=== PATIENT | female | born 1945 | race Caucasian/White ===

== ENCOUNTER 2020-10-15 11:40 | Emergency (ER) | payer OTHER ==
--- OUTSIDE RECORDS SUMMARY | 2020-10-15 11:43 | XMS REPORT | Continuity of Care Document ---
:[address] [facility] t Address [address] [place] [address] Care Team Providers Name Role Phone Mayito Primary Care Physician Jose F BRASHER, L Attending Clinician Reddy BRASHER, R. Attending Clinician Janeth BRASHER Attending Clinician JACKELINE Attending Clinician Unavailable JACKELINE Admitting Clinician Unavailable Payers Payer Name Policy Type Policy Effective Expiration Source Number Date Date MEDICAREMEDICARE PART [id number] 2009 [place] A AND 00:00:00 [facility] [id number]/06/2009[place] [facility] [id number] 2017 Chiqu[place] ston OF 00:00:00 [facility] [id number] 8-Present[facility]mercial MEDICAREMEDICARE PART [id number] 2009 Un iversity of A & 00:00:00 [facility] [id number] 2009- [facility] [phone][id number] ROSALIND PERKINS [phone] [facility] [id number] 2017 Uni versity of OF 00:00:00 [facility] [id number] 2017 Bra [facility] -PresentHMO/PPO/POS MEDICAREMEDICARE A [id number] ZAIDA Tia solomon Melodie - [id number] 2009- 00:00:00 [facility] PresentMedicare MCR [id number] 2017 ZAIDA [place] - SUPPLEMENT/INDIVIDUAL 00:00:00 [facility] MUTUAL OF [id number] 2017 -PresentMedigap Problems Condition Condition Condition Status Onset Resolution Last Treating Co mments Source Name Details Category Date Date Treatment Clinician Date DDD DDD Disease Active 2019-06 [place] (degenerat (degenerat 0-29 Me thodi jordyn disc jordyn disc 00:00: st disease), disease), 00 cervical cervical Alteration Alteration Disease Active 2019-06 [place] s of s of 0-29 [facility] sensations sensations 00:00: st 00 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 3-06 Me thodi right knee right knee 00:00: st replacemen replacemen 00 t 07/29/19 t 07/29/19 Osteoarthr Osteoarthr Disease Active [place] itis of itis of 2-27 Methodi right knee right knee 00:00: st 00 Chronic Chronic Disease Active [place] pain of pain of 1-20 [facility] right knee right knee 00:00: st 00 Primary Primary Disease Active [place] osteoarthr osteoarthr 1-15 Me thodi itis of itis of 00:00: st right knee right knee 00 Acute Acute Disease Active [place] medial medial 1-15 [facility] meniscus meniscus 00:00: st tear of tear of 00 right knee right knee Acute Acute Disease Active [place] lateral lateral 1-15 [facility] meniscus meniscus 00:00: st tear of tear of 00 left knee left knee Bilateral Bilateral Disease Active Uni vers hand pain hand pain 2-22 ity of 00:00: [place] 00 Medical Branch Allergies, Adverse Reactions, Alerts Allergy Allergy Status Severity Reaction(s) Onset Inactive Treating Comm ents Source Name Type Date Date Clinician Sulfa Propensi Active Rash [place] (Sulfona ty to 1-15 Methodi mide adverse 00:00: st Antibiot reaction 00 ics) s to drug Sulfacet Propensi Active Rash Univer s Sod-Sulf ty to 2-25 ity of -Urea-Me adverse 00:00: [place] r-Ti reaction 00 Medical s Branch Family History Family Member Diagnosis Comments Start Date Stop Date Source Natural father Cancer [facility] Natural father Heart attack [facility] Natural father Heart disease [facility] Natural mother Kidney disease [place] [facility] Paternal aunt Heart attack [facility] Paternal aunt Heart disease [facility] Paternal aunt Cancer [facility] Paternal grandfather Cancer [place] [facility] Paternal uncle Heart attack [facility] Vasquez Social History Social Habit Start Date Stop Date Quantity Comments Source Sex Assigned At [facility] Exposure to Not sure [place] Metho dist SARS-CoV-2 (event) Cigarettes smoked 2020-03-30 2020-03-30 [facility] current (pack per 00:00:00 00:00:00 day) - Reported Cigarette 2020-03-30 2020-03-30 [facility] Timothy ist pack-years 00:00:00 00:00:00 Tobacco use and 2020-03-30 2020-03-30 Never used [facility] ethodist exposure 00:00:00 00:00:00 Alcohol intake 2020-03-30 2020-03-30 Ex-drinker [facility]ist 00:00:00 00:00:00 (finding) Alcohol Comment 2019-07-15 2019-07-15 Rarely [facility] [place] ethodist 00:00:00 00:00:00 History of tobacco 2004-06-02 2014-06-02 Current smoker Prasanna nguyen [facility] use 00:00:00 00:00:00 Smoking Status Start Date Stop Date Source Never smoker [facility] Former smoker 2020-03-30 00:00:00 2020-03-30 00:00:00 [place] [facility] Medications Ordered Filled Start Stop Current Ordering Indication Dosage Frequency Signature Comments Components Source Medication Medication Date Date Medication? Clinician (SIG) Name Name naproxen 2019-06 Yes 1{tbl} Q.5D Take 1 [place] sodium 0-29 tablet by Methodi (ALEVE) 220 10:10: mouth 2 st mg capsule 30 (two) times a day. glucosamine 2019-06 Yes 1{tbl} QD Take 1 [place] /chondr pritchett 0-29 tablet by Meth gabriel A sod 10:10: mouth st (OSTEO 30 daily. BI-FLEX ORAL) TURMERIC 2019- Yes QD Take by [place] ORAL 0-29 mouth Methodi 10:10: every st 30 morning. cranberry 2019- Yes 1{tbl} Q.5D Take 1 [place] fruit 0-29 tablet by [facility] extract 10:10: mouth 2 st (CRANBERRY 30 (two) ORAL) times a day. magnesium 2019- Yes 400mg QD Take [address] [address] oxide 0-29 mg by Methodi (MAG-OX) 10:10: mouth st 400 mg 30 daily. (241.3 mg magnesium) tablet calcium 2019-06 Yes 1{tbl} Q.5D Take 1 [place] citrate-vit 0-29 tablet by Met hodi charles D3 10:10: mouth 2 st (CITRACAL+D 30 (two) ) 315-200 times a mg-unit per day. tablet BIOTIN ORAL 2019-06 Yes 2{tbl} QD Take 2 [place] 0-29 tablets by Methodi 10:10: mouth st 30 daily. NON 2019-06 Yes vivek [facility] FORMULARY 0-29 supplement Meth gabriel 10:10: st 30 sertraline 2019- Yes 150mg 150 mg. [place] (ZOLOFT) 1-11 Methodi 100 MG 00:00: st tablet 00 omeprazole 2019- Yes 20mg QD Take 20 mg [place] (PriLOSEC) 1-10 by mouth Metho di 20 MG 00:00: every st capsule 00 morning. EZETIMIBE 2018-06 Yes Take by [facility] ers ORAL 2-02 mouth. ity of 22:25: [address] EZETIMIBE 2018-06 Yes Take by [facility] ers ORAL 2-02 mouth. ity of 22:25: [address] LORAZepam 2018-06 Yes .5mg Q.5D Take 0.5 [place] (ATIVAN) 2-02 mg by Methodi 0.5 MG 00:00: mouth 2 st tablet 00 (two) times a day as needed for anxiety. methylPREDN 2016- Yes 84mg Take 21 Uni vers ISolone 5-02 tablets by ity of (MEDROL, 00:00: mouth [place] JORGE,) 4 mg 00 SEE-INSTRU Med ical tablets CTIONS. Branch follow package directions methylPREDN 2017-0 Yes 84mg Take 21 Uni vers ISolone 5-02 tablets by ity of (MEDROL, 00:00: mouth [place] JORGE,) 4 mg 00 SEE-INSTRU Med ical tablets CTIONS. Branch follow package directions naproxen 2017-0 Yes 500mg Take 1 Univer s 500 mg 4-13 tablet by ity of tablet 00:00: mouth 2 (two) Medical times Branch daily with meals. naproxen 2017-0 Yes 500mg Take 1 Univer s 500 mg 4-13 tablet by ity of tablet 00:00: mouth 2 (two) Medical times Branch daily with meals. diclofenac 2017-0 Yes 75mg Take 1 Unive rs 75 mg EC 2-22 tablet by ity of tablet 00:00: mouth 2 (two) Medical times Branch daily with meals. methylPREDN 2017-0 Yes 84mg Take 21 Uni vers ISolone 2-22 tablets by ity of (MEDROL, 00:00: mouth [place] JORGE,) 4 mg 00 SEE-INSTRU Med ical tablets CTIONS. Branch follow package directions diclofenac 2017-0 Yes 75mg Take 1 Unive rs 75 mg EC 2-22 tablet by ity of tablet 00:00: mouth 2 (two) Medical times Branch daily with meals. methylPREDN 2017-0 Yes 84mg Take 21 Uni vers ISolone 2-22 tablets by ity of (MEDROL, 00:00: mouth [place] JORGE,) 4 mg 00 SEE-INSTRU Med ical tablets CTIONS. Branch follow package directions methylPREDN 2016-0 Yes 84mg Take 21 Uni vers ISolone 2-25 Tabs by ity of (MEDROL, 00:00: mouth [place] JORGE,) 4 mg 00 SEE-INSTRU Med ical tablets CTIONS. Branch follow package directions methylPREDN 2016-0 Yes 84mg Take 21 Uni vers ISolone 2-25 Tabs by ity of (MEDROL, 00:00: mouth [place] JORGE,) 4 mg 00 SEE-INSTRU Med ical tablets CTIONS. Branch follow package directions LORazepam 2015-0 Yes Univers (ATIVAN) 2-24 ity of 0.5 mg 00:00: [place] tablet 00 Medical Branch LORazepam 2016-0 Yes Univers (ATIVAN) 2-24 ity of 0.5 mg 00:00: [place] tablet 00 Medical Branch SERTraline Yes Univers (ZOLOFT) 2-22 ity of 100 mg 00:00: [place] tablet 00 Medical Branch SERTraline Yes Univers (ZOLOFT) 2-22 ity of 100 mg 00:00: [place] tablet 00 Medical Branch atenolol Yes 25mg QD Take 25 mg [place] (TENORMIN) 1-11 by mouth Metho di 25 MG 00:00: nightly. st tablet atenolol Yes Univers (TENORMIN) 1-11 ity of 25 mg 00:00: [place] tablet 00 Medical Branch atenolol Yes Univers (TENORMIN) 1-11 ity of 25 mg 00:00: [place] tablet 00 [facility] Branch omeprazole 2014-06 Yes Univers (PRILOSEC) 2-16 ity of 40 mg 00:00: [place] capsule 00 [facility] omeprazole 2014-06 Yes Univers (PRILOSEC) 2-16 ity of 40 mg 00:00: [place] capsule 00 [facility] levothyroxi 2014-06 Yes 88ug QD Take 88 [place] ne 2-04 mcg by Methodi (SYNTHROID) 00:00: mouth st 88 mcg 00 every tablet morning. levothyroxi 2014-06 Yes Univer s ne 2-04 ity of (SYNTHROID) 00:00: [place] 88 mcg 00 [facility] Branch levothyroxi 2014-06 Yes Univer s ne 2-04 ity of (SYNTHROID) 00:00: [place] 88 mcg 00 [facility] Branch Immunizations Ordered Immunization Filled Immunization Date Status Commen ts Source Name Name PFIZER COVID-19 MRNA 2020-07-03 Completed [place] VACCINATION 00:00:00 [facility] PFIZER COVID-19 MRNA 2020-06-12 Completed [place] VACCINATION 00:00:00 [facility] Vital Signs Vital Name Observation Time Observation Value Comments Source Systolic blood 2020-10-06 15:33:00 121 mm[Hg] Univer sity of [facility] Diastolic blood 2020-10-06 15:33:00 62 mm[Hg] Unive rsity of [facility] Heart rate 2020-10-06 15:33:00 50 /min Universi ty [facility] [place] [facility] Body height 2020-10-06 15:33:00 167.6 cm Universi ty [facility] [place] [facility] Body weight 2020-10-06 15:33:00 84.823 kg Universi ty [facility] [place] [facility] BMI 2020-10-06 15:33:00 30.18 kg/m2 Universi ty [facility] [place] [facility] Systolic blood 2020-10-06 15:33:00 121 mm[Hg] Univer sity [facility] pressure [facility] Diastolic blood 2020-10-06 15:33:00 62 [facility]Hg[facility] 2020-10-06 15:33:00 50 /min Universi ty [facility] [place] [facility] Body height 2020-10-06 15:33:00 167.6 cm Universi ty [facility] [place] [facility] Body weight 2020-10-06 15:33:00 84.823 kg Universi ty [facility] [place] [facility] BMI 2020-10-06 15:33:00 30.18 kg/m2 Universi [facility] Body height 2020-03-30 10:00:00 167.6 cm [facility] Body weight 2020-03-30 10:00:00 86.183 kg [facility] BMI 2020-03-30 10:00:00 30.67 kg/m2 [facility] Procedures Procedure Date / Time Performed Performing Clinician [facility] e MRI SPINE EXTERNAL 2020-03-15 14:13:00 Unique Blakely [facility] STUDY MRA HEAD WITH & 2020-01-03 10:54:[address] [facility] - WITHOUT [facility] CONTRAST Medical Cent er MRA NECK WITH & 2020-01-03 10:54:[address] [facility] - WITHOUT CONTRAST Medical Center MR BRAIN WITH & 2020-01-03 10:54:[address] [facility] - WITHOUT IV CONTRAST Medical Cent er Plan of Care Planned Activity Planned Date Details Comments Source Future Scheduled 2021-10-06 Depression screening [facility] [place] Test 00:00:00 (procedure) [code = Medical Branch 587398218] Future Scheduled 2021-10-06 Depression screening [facility] [place] Test 00:00:00 (procedure) [code = Medical Branch 773245960] Future Scheduled 2021-01-31 INFLUENZA VACCINE [facility] [place] Test 00:00:00 (Season Ended) [code = Medic al Branch INFLUENZA VACCINE (Season Ended)] Future Scheduled 2021-01-31 INFLUENZA VACCINE [facility] [place] Test 00:00:00 (Season Ended) [code = Medic al Branch INFLUENZA VACCINE (Season Ended)] Future Scheduled 2020-12-31 INFLUENZA VACCINE [place] [facility] Test 00:00:00 [code = INFLUENZA VACCINE] Future Scheduled 2020-02-01 INFLUENZA VACCINE (#1[facility] Test 00:00:00 [code = INFLUENZA Medical Ce nter VACCINE (#1)] Future Scheduled 2010-11-[address] [facility] Test 00:00:00 WELLNESS (YEAR 2 or Medical Center FIRST YEAR if no IPPE) [code = MEDICARE ANNUAL WELLNESS (YEAR 2 or FIRST YEAR if no IPPE)] Future Scheduled 2009 PNEUMOCOCCAL 65+ YRS [facility] - Test 00:00:00 (1 of 1 - Medical Center [id number]) [code = PNEUMOCOCCAL 65+ YRS (1 of 1 - [id number] PCV13)] Future Scheduled 2009 65+ PNEUMOCOCCAL [place] [facility] Test 00:00:00 VACCINE (1 of 1 - PPSV23) [code = 65+ PNEUMOCOCCAL VACCINE (1 of 1 - PPSV23)] Future Scheduled 2009 Medicare Annual Universi ty [facility] Test 00:00:00 Wellness Visit Medical Branc h (procedure) [code = 290865796688107] Future Scheduled 2009 Screening for [facility] Test 00:00:00 osteoporosis Medical Branch (procedure) [code = 469385330] Future Scheduled 2009 PNEUMOCOCCAL VACCINES Un iversity [facility] Test 00:00:00 65+ (1 of 1 - PPSV23) Medica l Branch [code = PNEUMOCOCCAL VACCINES 65+ (1 of 1 - PPSV23)] Future Scheduled 2009 Medicare Annual Universi ty [facility] Test 00:00:00 Wellness Visit Medical Branc h (procedure) [code = 586412417671598] Future Scheduled 2009 Screening for University [facility] Test 00:00:00 osteoporosis Medical Branch (procedure) [code = 318989426] Future Scheduled 2009 PNEUMOCOCCAL VACCINES [facility] [place] Test 00:00:00 65+ (1 of 1 - PPSV23) Medica l Branch [code = PNEUMOCOCCAL VACCINES 65+ (1 of 1 - PPSV23)] Future Scheduled 1994 BREAST CANCER [facility]odist Test 00:00:00 SCREENING [code = BREAST CANCER SCREENING] Future Scheduled 1994 COLONOSCOPY SCREENING [place] [facility] Test 00:00:00 [code = COLONOSCOPY SCREENING] Future Scheduled 1994 SHINGLES VACCINES (#1) H [facility] [facility] Test 00:00:00 [code = SHINGLES VACCINES (#1)] Future Scheduled 1994 Screening for occult [facility] [place] Test 00:00:00 blood in feces Medical Branc h (procedure) [code = 602484765] Future Scheduled 1994 Stool DNA-based Universi [facility] Test 00:00:00 colorectal cancer Medical Br anch screening (procedure) [code = 230898085813830] Future Scheduled 1994 [facility] sigmoidoscopy Medical Branch (procedure) [code = 93670272] Future Scheduled 1994 Screening for University [facility] Test 00:00:00 malignant neoplasm of Medica l Branch colon (procedure) [code = 828498208] Future Scheduled 1994 Screening for University [facility] Test 00:00:00 malignant neoplasm of Medica l Branch colon (procedure) [code = 859505689] Future Scheduled 1994 [facility]com[facility]00 Vaccine (SHINGRIX) (1 Medica l Branch of 2) [code = Zoster Recombinant Vaccine (SHINGRIX) (1 of 2)] Future Scheduled 1994 Screening for occult [facility] [place] Test 00:00:00 blood in feces Medical Branc h (procedure) [code = 259147508] Future Scheduled 1994 Stool DNA-based Universi [facility] Test 00:00:00 colorectal cancer Medical Br anch screening (procedure) [code = 340837048709753] Future Scheduled 1994 [facility]ible fiberoptic [facility]:00 sigmoidoscopy Medical Branch (procedure) [code = 41721787] Future Scheduled 1994 Screening for University [facility] Test 00:00:00 malignant neoplasm of Medica l Branch colon (procedure) [code = 264146316] Future Scheduled 1994 Screening for University [facility] Test 00:00:00 malignant neoplasm of Medica l Branch colon (procedure) [code = 370051135] Future Scheduled 1994 [facility]oster [facility]com[facility]00 Vaccine (SHINGRIX) (1 Medica l Branch of 2) [code = Zoster Recombinant Vaccine (SHINGRIX) (1 of 2)] Future Scheduled 1984 Screening for [facility] Test 00:00:00 malignant neoplasm of Medica l Branch breast (procedure) [code = 012283480] Future Scheduled 1984 Screening for [facility] Test 00:00:00 malignant neoplasm of Medica l Branch breast (procedure) [code = 313492929] Future Scheduled 1963-11-29 DTaP,Tdap,and Td Univers ity [facility] Test 00:00:00 Vaccines (1 - Tdap) Medical Branch [code = DTaP,Tdap,and Td Vaccines (1 - Tdap)] Future Scheduled 1963-11-29 DTaP,Tdap,and Td Univers ity [facility] Test 00:00:00 Vaccines (1 - Tdap) Medical Branch [code = DTaP,Tdap,and Td Vaccines (1 - Tdap)] Future Scheduled 1962 Hepatitis C screening [facility] Test 00:00:00 (procedure) [code = 398898805] Future Scheduled 1962 Hepatitis C screening [facility] [place] Test 00:00:00 (procedure) [code = Medical Branch 189491293] Future Scheduled 1962 Hepatitis C screening [facility] [place] Test 00:00:00 (procedure) [code = Medical Branch 306921356] Future Scheduled [address] [facility] - Test 00:00:00 malignant neoplasm of Medica l Center colon (procedure) [code = 047950067] Encounters Start End Encounter Admission Attending Care Care Encounter Source Date/Time Date/Time Type Type Clinicians Facility Department ID 2020-10-13 2020-10-13 Telephone Jose F [facility] [id number] 00:00:00 00:00:00 [facility] [id number] Surgical [id number] Specialti [id number] es 198 [place] 2020-10-10 2020-10-10 [facility] [id number] 00:00:00 00:00:00 Bruno Kilpatrick [id number] Surgical [id number] Specialti [id number] es [address] [place] 2020-10-06 2020-10-06 [facility] [id number] 10:37:14 23:59:00 Encounter Bruno Estrada [facility] [id number] Surgical [id number] Specialti [id number] es 809 [place] 2020-10-06 2020-10-06 [facility] [id number] 10:27:50 10:56:15 Visit Bruno Kilpatrick [id number] Surgical [id number] Specialti [id number] es 198 [place] 2020-07-03 2020-07-03 Outpatient [facility] [id number] [place] 00:00:00 00:00:00 117 Method i 2020-06-12 2020-06-12 Outpatient [facility] [id number] [place] 00:00:00 00:00:[address] 2020-03-30 2020-03-[address] [facility] [id number] [place] 00:00:00 00:00:00 UNIQUE [address] 2020-03-30 2020-03-30 Outpatient SASSARD, [facility] [id number] [place] 00:00:00 00:00:00 UNIQUE 275 Method i 2019-09-17 2019-09-17 Outpatient JACKELINE, [facility] [id number] [place] 00:00:00 00:00:00 LEW [address] 2019-08-06 2019-08-06 Outpatient JACKELINE, [facility] [id number] [place] 00:00:00 00:00:00 LEW 933 Method i 2019-08-06 2019-08-06 Outpatient JACKELINE, [facility] [id number] [place] 00:00:00 00:00:00 LWE [address] 2019-07-29 2019-07-30 Outpatient JACKELINE, [facility] [id number] [place] 00:00:00 00:00:00 LEW [address] 2019-06-16 2019-06-16 Outpatient [facility] [id number] [place] 00:00:00 00:00:[address] Results Test Description Test Time Test Comments Results Result Sourc e Comments MRI Spine 2020-03-03 This exam was not [place] External Study 9 acquired at a [facility]i 10:50:06 [facility] facility and has not been interpreted by a [facility] Provider. The exam was imported into our imaging system. MR, MRA, BRAIN, FINAL REPORT PATIENT WITH 3 ID: [id number] MR, 11:17:00 BRAIN, WITH \T\ WITHOUT CONTRAST, MR, MRA, NECK, WITH \T\ WITHOUT IV CONTRAST, MR, MRA, BRAIN, WITH \T\ WITHOUT CONTRAST INDICATION: DIZZINESS TECHNIQUE: Multiplanar, multisequence MR images of the brain. 3-D time of flight MRA of the cranial and cervical circulation. 2-D time of flight MRA of the neck. 3D MIP angiographic post-processing was performed. Stenosis evaluation utilized NASCET criteria. COMPARISON: Noncontrast brain CT of the same date FINDINGS: MRI BRAIN: Brain parenchyma is normal in morphology. Midline structures are normally developed. No restricted diffusion to suggest recent ischemic insult. No abnormal susceptibility. Scattered T2/FLAIR hyperintense foci within the periventricular and subcortical white matter are nonspecific, however, statistically represent chronic microvascular ischemic changes. No hydrocephalus. Orbits are within normal limits. No obstructive paranasal sinus disease. Additional findings: None. 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 Normal flow-related enhancement within the bilateral HOUSEKEEPING SUPERVISOR HOTEL P1-P2 segments without flow-limiting stenosisAdditional findings: None. MRA NECK:Common carotid arteries: Unremarkable. Bifurcations: No flow-limiting stenosis. Cervical internal carotid arteries: No flow limiting stenosis.Vertebral arteries: Origins are not well-seen. No flow limiting stenosis within the visualized cervical vertebral arterial segments. Limited assessment of the V3 segment secondary to noncontrast technique. IMPRESSION: No acute ischemia or parenchymal hemorrhage. No flow limiting stenosis in the major branch vessels of the cervical or cranial circulation. Signed: Saeed Jeffers MDReport Verified Date/Time: 01/03/2020 11:17:26 Reading Location: [facility] C013V Neuro Reading Room , MRA, NECK, FINAL REPORT PATIENT WITH 3 ID: [id number] MR, 11:17:00 BRAIN, WITH \T\ WITHOUT CONTRAST, MR, MRA, NECK, WITH \T\ WITHOUT IV CONTRAST, MR, MRA, BRAIN, WITH \T\ WITHOUT CONTRAST INDICATION: DIZZINESS TECHNIQUE: Multiplanar, multisequence MR images of the brain. 3-D time of flight MRA of the cranial and cervical circulation. 2-D time of flight MRA of the neck. 3D MIP angiographic post-processing was performed. Stenosis evaluation utilized NASCET criteria. COMPARISON: Noncontrast brain CT of the same date FINDINGS: MRI BRAIN: Brain parenchyma is normal in morphology. Midline structures are normally developed. No restricted diffusion to suggest recent ischemic insult. No abnormal susceptibility. Scattered T2/FLAIR hyperintense foci within the periventricular and subcortical white matter are nonspecific, however, statistically represent chronic microvascular ischemic changes. No hydrocephalus. Orbits are within normal limits. No obstructive paranasal sinus disease. Additional findings: None. 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 Normal flow-related enhancement within the bilateral HOU[employer]KEEP[employer] HOTEL P1-P2 segments without flow-limiting stenosisAdditional findings: None. MRA NECK:Common carotid arteries: Unremarkable. Bifurcations: No flow-limiting stenosis. Cervical internal carotid arteries: No flow limiting stenosis.Vertebral arteries: Origins are not well-seen. No flow limiting stenosis within the visualized cervical vertebral arterial segments. Limited assessment of the V3 segment secondary to noncontrast technique. IMPRESSION: No acute ischemia or parenchymal hemorrhage. No flow limiting stenosis in the major branch vessels of the cervical or cranial circulation. Signed: Saeed Jeffers MDReport Verified Date/Time: 01/03/2020 11:17:26 Reading Location: [address] Neuro Reading Room , BRAIN, WITH FINAL REPORT PATIENT 3 ID: [id number] MR, 11:17:00 BRAIN, WITH \T\ WITHOUT CONTRAST, MR, MRA, NECK, WITH \T\ WITHOUT IV CONTRAST, MR, MRA, BRAIN, WITH \T\ WITHOUT CONTRAST INDICATION: DIZZINESS TECHNIQUE: Multiplanar, multisequence MR images of the brain. 3-D time of flight MRA of the cranial and cervical circulation. 2-D time of flight MRA of the neck. 3D MIP angiographic post-processing was performed. Stenosis evaluation utilized NASCET criteria. COMPARISON: Noncontrast brain CT of the same date FINDINGS: MRI BRAIN: Brain parenchyma is normal in morphology. Midline structures are normally developed. No restricted diffusion to suggest recent ischemic insult. No abnormal susceptibility. Scattered T2/FLAIR hyperintense foci within the periventricular and subcortical white matter are nonspecific, however, statistically represent chronic microvascular ischemic changes. No hydrocephalus. Orbits are within normal limits. No obstructive paranasal sinus disease. Additional findings: None. 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 Normal flow-related enhancement within the bilateral HOU[employer]KEEP[employer]PER[employer] HOTEL P1-P2 segments without flow-limiting stenosisAdditional findings: None. MRA NECK:Common carotid arteries: Unremarkable. Bifurcations: No flow-limiting stenosis. Cervical internal carotid arteries: No flow limiting stenosis.Vertebral arteries: Origins are not well-seen. No flow limiting stenosis within the visualized cervical vertebral arterial segments. Limited assessment of the V3 segment secondary to noncontrast technique. IMPRESSION: No acute ischemia or parenchymal hemorrhage. No flow limiting stenosis in the major branch vessels of the cervical or cranial circulation. Signed: Saeed Jeffers MDReport Verified Date/Time: 01/03/2020 11:17:26 Reading Location: [address] Neuro Reading Room head with Interface, External [facility] and without 3 Ris In - 01/03/2020 - Me dical contrast 11:17:00 11:19 AM [facility] Center REPORT MR, BRAIN, WITH \T\ WITHOUT CONTRAST, MR, MRA, NECK, WITH \T\ WITHOUT IV CONTRAST, MR, MRA, BRAIN, WITH \T\ WITHOUT CONTRAST INDICATION: DIZZINESS TECHNIQUE: Multiplanar, multisequence MR images of the brain. 3-D time of flight MRA of the cranial and cervical circulation. 2-D time of flight MRA of the neck. 3D MIP angiographic post-processing was performed. Stenosis evaluation utilized NASCET criteria. COMPARISON: Noncontrast brain CT of the same date FINDINGS: MRI BRAIN: Brain parenchyma is normal in morphology. Midline structures are normally developed. No restricted diffusion to suggest recent ischemic insult. No abnormal susceptibility. Scattered T2/FLAIR hyperintense foci within the periventricular and subcortical white matter are nonspecific, however, statistically represent chronic microvascular ischemic changes. No hydrocephalus. Orbits are within normal limits. No obstructive paranasal sinus disease. Additional findings: None. 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 Normal flow-related enhancement within the bilateral [employer]EEP[employer]OTEL P1-P2 segments without flow-limiting stenosisAdditional findings: None. MRA NECK:Common carotid arteries: Unremarkable. Bifurcations: No flow-limiting stenosis. Cervical internal carotid arteries: No flow limiting stenosis.Vertebral arteries: Origins are not well-seen. No flow limiting stenosis within the visualized cervical vertebral arterial segments. Limited assessment of the V3 segment secondary to noncontrast technique. IMPRESSION: No acute ischemia or parenchymal hemorrhage. No flow limiting stenosis in the major branch vessels of the cervical or cranial circulation. Signed: Saeed Jeffers MDReport Verified Date/Time: 01/03/2020 11:17:26 Reading Location: [address] Neuro Reading Room neck without Interface, External [facility] & with IV 3 Ris In - 01/03/2020 - Med ical contrast 11:17:00 11:19 AM [facility] Center REPORT MR, BRAIN, WITH \T\ WITHOUT CONTRAST, MR, MRA, NECK, WITH \T\ WITHOUT IV CONTRAST, MR, MRA, BRAIN, WITH \T\ WITHOUT CONTRAST INDICATION: DIZZINESS TECHNIQUE: Multiplanar, multisequence MR images of the brain. 3-D time of flight MRA of the cranial and cervical circulation. 2-D time of flight MRA of the neck. 3D MIP angiographic post-processing was performed. Stenosis evaluation utilized NASCET criteria. COMPARISON: Noncontrast brain CT of the same date FINDINGS: MRI BRAIN: Brain parenchyma is normal in morphology. Midline structures are normally developed. No restricted diffusion to suggest recent ischemic insult. No abnormal susceptibility. Scattered T2/FLAIR hyperintense foci within the periventricular and subcortical white matter are nonspecific, however, statistically represent chronic microvascular ischemic changes. No hydrocephalus. Orbits are within normal limits. No obstructive paranasal sinus disease. Additional findings: None. 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 Normal flow-related enhancement within the bilateral [employer]OTEL P1-P2 segments without flow-limiting stenosisAdditional findings: None. MRA NECK:Common carotid arteries: Unremarkable. Bifurcations: No flow-limiting stenosis. Cervical internal carotid arteries: No flow limiting stenosis.Vertebral arteries: Origins are not well-seen. No flow limiting stenosis within the visualized cervical vertebral arterial segments. Limited assessment of the V3 segment secondary to noncontrast technique. IMPRESSION: No acute ischemia or parenchymal hemorrhage. No flow limiting stenosis in the major branch vessels of the cervical or cranial circulation. Signed: Saeed Jeffers MDReport Verified Date/Time: 01/03/2020 11:17:26 Reading Location: [address] Neuro Reading Room brain without Interface, External [facility] & with IV 3 Ris In - 01/03/2020 - Med ical contrast 11:17:00 11:19 AM [facility] Center REPORT MR, BRAIN, WITH \T\ WITHOUT CONTRAST, MR, MRA, NECK, WITH \T\ WITHOUT IV CONTRAST, MR, MRA, BRAIN, WITH \T\ WITHOUT CONTRAST INDICATION: DIZZINESS TECHNIQUE: Multiplanar, multisequence MR images of the brain. 3-D time of flight MRA of the cranial and cervical circulation. 2-D time of flight MRA of the neck. 3D MIP angiographic post-processing was performed. Stenosis evaluation utilized NASCET criteria. COMPARISON: Noncontrast brain CT of the same date FINDINGS: MRI BRAIN: Brain parenchyma is normal in morphology. Midline structures are normally developed. No restricted diffusion to suggest recent ischemic insult. No abnormal susceptibility. Scattered T2/FLAIR hyperintense foci within the periventricular and subcortical white matter are nonspecific, however, statistically represent chronic microvascular ischemic changes. No hydrocephalus. Orbits are within normal limits. No obstructive paranasal sinus disease. Additional findings: None. 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 Normal flow-related enhancement within the bilateral [employer]OTEL P1-P2 segments without flow-limiting stenosisAdditional findings: None. MRA NECK:Common carotid arteries: Unremarkable. Bifurcations: No flow-limiting stenosis. Cervical internal carotid arteries: No flow limiting stenosis.Vertebral arteries: Origins are not well-seen. No flow limiting stenosis within the visualized cervical vertebral arterial segments. Limited assessment of the V3 segment secondary to noncontrast technique.
[2020-10-15] MEDS ORDERED: HYDROCODONE/APAP 10/325 TAB ONE (13:40)
[2020-10-15] MEDS ORDERED: DIAZEPAM 5 MG TABLET ONE (13:40)
[2020-10-15] MEDS ORDERED: dexAMETHasone 10 MG/ML VIAL ONE (13:41)
--- NOTE | 2020-10-15 14:16 | RAD REPORT ---
EXAM DESCRIPTION: RAD - Lumbar Spine 3 Views - 10/15/2020 1:42 pm CLINICAL HISTORY: fall, back pain COMPARISON: LSPINE WITH BENDING VIEWS dated 12/14/2008 FINDINGS: A three-view lumbar spine examination was performed. Approximately 15% height loss noted in the L1 body involving superior endplate. Posterior wall height is preserved. L2-L5 bodies are normal in height. There is a mild right convex degenerative scoliotic curvature. No subluxation abnormalities. No fracture or acute bony process seen. L3-4 disc space constantino rowing present with degenerative gas in the disc space. Endplate spurring changes are present in the mid and lower lumbar spine. Facet joint degenerative changes are present but relatively mild. No pars defects identified. IMPRESSION: Approximately 15% compression deformity of the L1 body with posterior wall height preser doug. L1 findings have no associated lytic, sclerotic or expansile component. This is most likely a benign osteoporotic fracture but age is unknown other than being new since 2008. Moderate L3-4 degenerative disc disease new from 2008. Overall progression of degenerative change not ed. If clinically warranted, MR imaging of the lumbar spine could be performed to evaluate for any active edema of the L1 body. MRI could also be used to evaluate disc herniation or central canal abnormalit ies.
--- NOTE | 2020-10-15 15:20 | EDPHYS ---
Physician Documentation [facility] Name: Bernarda Bond Age: 74 yrs Sex: Female : 1945 Arrival Date: 10/15/2020 Time: 11:44 Bed 16 Private MD: Sadiq Edmond V ED Physician Maria Luz Hooper HPI: 10/15 12:53 This 74 yrs old Female presents to ER via Ambulatory with complaints of Back jmm Pain. 12:53 The patient presents with pain that is acute. Onset: The symptoms/episode jmm began/occurred acutely, 16 day(s) ago. The pain radiates to the left leg. Associated signs and symptoms: Pertinent negatives: chest pain, hematuria, incontinence, numbness, tingling, urinary retention, vomiting, weakness. Modifying factors: The patient symptoms are alleviated by nothing, the patient symptoms are aggravated by any movement. The patient has experienced a previous episode. This is a 74 year old female with a history of htn, hlp, that presents to the ED with complaints of lower back pain which radiates down the left leg. Denies urinary incontinence or bowel incontinence. . Historical: - Allergies: 12:01 Sulfa (Sulfonamide Antibiotics); ca1 - PMHx: 12:01 Heart Murmur; Hypertension; High Cholesterol; ca1 - PSHx: 12:01 Hysterectomy; Cholecystectomy; ca1 - Immunization history:: Client reports receiving the 2nd dose of the Covid vaccine, Client reports receiving the 1st dose of the Covid vaccine, Pneumococcal vaccine is up to date, Flu vaccine is up to date. - Social history:: Smoking status: Patient denies any tobacco usage or history of. ROS: 12:53 Constitutional: Negative for fever, chills, and weight loss, Cardiovascular: Negative jmm for chest pain, palpitations, and edema, Respiratory: Negative for shortness of breath, cough, wheezing, and pleuritic chest pain. 12:53 Back: Positive for pain with movement. 12:53 All other systems are negative. Exam: 12:53 Constitutional: This is a well developed, well nourished patient who is awake, alert, jmm and in no acute distress. Head/Face: atraumatic. Eyes: EOMI, no conjunctival erythema appreciated ENT: Moist Mucus Membranes Neck: Trachea midline, Supple Chest/axilla: Normal chest wall appearance and motion. Cardiovascular: Regular rate and rhythm. No edema appreciated Respiratory: Normal respirations, no respiratory distress appreciated Abdomen/GI: Non distended, soft 12:53 Skin: General appearance color normal MS/ Extremity: Moves all extremities, no obvious deformities appreciated, no edema noted to the lower extremities Neuro: Awake and alert, normal gait Psych: Behavior is normal, Mood is normal, Patient is cooperative and pleasant 12:53 Back: pain, that is moderate, of the left low back, vertebral tenderness, is not appreciated. Vital Signs: 11:55 BP 116 / 92; Pulse 55; Resp 16 S; Temp 97.1(TE); Pulse Ox 98% ; Weight 83.91 kg; Height ca1 5 ft. 6 in. (167.64 cm) (R); Pain 8/10; 14:09 BP 131 / 74; Pulse 54; Resp 14; Pulse Ox 99% on R/A; dh4 11:55 Body Mass Index 29.86 (83.91 kg, 167.64 cm) ca1 MDM: 12:53 Patient medically screened. [facility] 15:17 Data reviewed: vital signs, EMS record. Counseling: I had a detailed discussion with flako the patient and/or guardian regarding: the historical points, exam findings, and any diagnostic results supporting the discharge/admit diagnosis, radiology results, the need for outpatient follow up, to return to the emergency department if symptoms worsen or persist or if there are any questions or concerns that arise at home. ED course: Pain decreased in the ED. I do not suspect cord compression, abscess. Will follow up with spine for further evaluation. patient understood and agrees with the plan of care. . 10/15 13:01 Order name: Lumbar Spine (3 Views) XRAY; Complete Time: 14:17 [facility] Administered Medications: 14:00 Drug: Valium (diazepam) 5 mg Route: PO; tr6 14:00 Drug: Prosper (HYDROcodone-acetaminophen) 10 mg-325 mg 1 tabs Route: PO; tr6 14:00 Drug: Decadron (dexamethasone) 10 mg Route: IM; Site: left deltoid; tr6 Disposition: 10/15/20 15:19 Discharged to Home. Impression: Fracture of lumbar vertebra. - Condition is Stable. - Discharge Instructions: Vertebral Fracture. - Prescriptions for Tylenol- Codeine #3 300-30 mg Oral Tablet - take 1 tablet by ORAL route every 4-6 hours As needed; 20 tablet. Valium 5 mg Oral Tablet - take 1 tablet by ORAL route every 8 hours As needed; 20 tablet. - Medication Reconciliation Form, Thank You Letter, Antibiotic Education, Prescription Opioid Use form. - Follow up: Private Physician; When: 2 - 3 days; Reason: Recheck today's complaints, Continuance of care, Re-evaluation by your physician. Addendum: 10/16/2020 18:29 Co-signature as Attending Physician, Maria Luz Hooper MD. m a2 Signatures: Dispatcher [employer] EDMS Herson Mcclain PA PA jmm Alzahri, Mohammad, MD MD ma2 Sana Mendoza RN RN ca1 Maria M Monahan RN RN tr6 Corrections: (The following items were deleted from the chart) 10/15 15:56 15:19 10/15/2020 15:19 Discharged to Home. Impression: Fracture of lumbar vertebra. tr6 Condition is Stable. Forms are Medication Reconciliation Form, Thank You Letter, Antibiotic Education, Prescription Opioid Use. Follow up: Private Physician; When: 2 - 3 days; Reason: Recheck today's complaints, Continuance of care, Re-evaluation by your physician. flako
--- NOTE | 2020-10-15 15:20 | ER ---
Nurse's Notes [facility] Name: Bernarda Bond Age: 74 yrs Sex: Female : 1945 Arrival Date: 10/15/2020 Time: 11:44 Bed 16 Private MD: Sadiq Edmond V Diagnosis: Fracture of lumbar vertebra Presentation: 10/15 11:55 Chief complaint: Patient states: Tripped and fell Friday, had a previous trip and fall ca1 on September 30. Now, I am hurting on my back, I think I stretched my back muscle, and I think I twisted something on my L lower back. Coronavirus screen: Client denies travel out of the [place] in the last 14 days. At this time, the client does not indicate any symptoms associated with coronavirus-19. Ebola Screen: Patient negative for fever greater than or equal to 101.5 degrees Fahrenheit, and additional compatible Ebola Virus Disease symptoms Patient denies exposure to infectious person. Patient denies travel to an Ebola-affected area in the 21 days before illness onset. No symptoms or risks identified at this time. Initial Sepsis Screen: Does the patient meet any 2 criteria? No. Patient's initial sepsis screen is negative. Does the patient have a suspected source of infection? No. Patient's initial sepsis screen is negative. Risk Assessment: Do you want to hurt yourself or someone else? Patient reports no desire to harm self or others. Onset of symptoms was October 15, 2020. 11:55 Method Of Arrival: Ambulatory ca1 11:55 Acuity: AWAIS 4 ca1 Historical: - Allergies: 12:01 Sulfa (Sulfonamide Antibiotics); ca1 - PMHx: 12:01 Heart Murmur; Hypertension; High Cholesterol; ca1 - PSHx: 12:01 Hysterectomy; Cholecystectomy; ca1 - Immunization history:: Client reports receiving the 2nd dose of the Covid vaccine, Client reports receiving the 1st dose of the Covid vaccine, Pneumococcal vaccine is up to date, Flu vaccine is up to date. - Social history:: Smoking status: Patient denies any tobacco usage or history of. Screenin:16 Abuse screen: Denies threats or abuse. Denies injuries from another. Nutritional tr6 screening: No deficits noted. Tuberculosis screening: No symptoms or risk factors identified. Fall Risk None identified. Assessment: 14:00 General: Appears distressed, uncomfortable, well groomed, Behavior is calm, tr6 cooperative, appropriate for age. Pain: Complains of pain in lower back and left butt cheek pain. Neuro: No deficits noted. Cardiovascular: No deficits noted. Respiratory: No deficits noted. GI: No deficits noted. : No deficits noted. EENT: No deficits noted. Derm: No deficits noted. Musculoskeletal: Reports pain in lower back and left butt cheek. 14:01 Neuro: Level of Consciousness is awake, alert, obeys commands, Oriented to person, tr6 place, time, situation, Appropriate for age Air Brake Rigger are equal bilaterally Moves all extremities. Gait is steady, Speech is normal. Vital Signs: 11:55 BP 116 / 92; Pulse 55; Resp 16 S; Temp 97.1(TE); Pulse Ox 98% ; Weight 83.91 kg; Height ca1 5 ft. 6 in. (167.64 cm) (R); Pain 8/10; 14:09 BP 131 / 74; Pulse 54; Resp 14; Pulse Ox 99% on R/A; dh4 11:55 Body Mass Index 29.86 (83.91 kg, 167.64 cm) ca1 ED Course: 11:44 Patient arrived in ED. as 11:45 Sadiq Edmond MD is Private Physician. as 11:59 Triage completed. ca1 12:01 Arm band placed on right wrist. ca1 12:33 Herson Mcclain PA is PHCP. jmm 12:33 Maria Luz Hooper MD is Attending Physician. jmm 12:52 Maria M Monahan RN is Primary Nurse. tr6 13:32 Lumbar Spine (3 Views) XRAY In Process Unspecified. EDMS 14:01 No provider procedures requiring assistance completed. Patient did not have IV access tr6 during this emergency room visit. 14:02 Patient has correct armband on for positive identification. Fall risk band placed. pt tr6 ambulating throughout room. pt states that ambulating helps with the pain. Administered Medications: 14:00 Drug: Valium (diazepam) 5 mg Route: PO; tr6 14:00 Drug: [place]er (HYDROcodone-acetaminophen) 10 mg-325 mg 1 tabs Route: PO; tr6 14:00 Drug: Decadron (dexamethasone) 10 mg Route: IM; Site: left deltoid; tr6 Outcome: 15:19 Discharge ordered by MD. arriola 15:56 Patient left the ED. tr6 Signatures: Dispatcher [employer] EDMS Herson Mcclain PA PA jmm Martinez, Amelia as Acob, Cheryl, RN RN [facility] [place] pending sale to [facility] Maria M Monahan RN RN tr6
[2020-10-15 16:02] VITALS: TEMP 97.1
[2020-10-15 16:04] VITALS: BP 131/74; O2SAT 99
== END 2020-10-15 15:56 | disposition home or self-care (01) ==
LOC: ER 11:40
DX: S32.019A Unspecified fracture of first lumbar vertebra, initial encounter for closed fracture (principal); W19.XXXA Unspecified fall, initial encounter; I10 Essential (primary) hypertension; Z88.2 Allergy status to sulfonamides
CPT/HCPCS: 72100; 96372; 99283; J1100

== ENCOUNTER 2020-10-17 13:15 | Emergency (ER) | payer OTHER ==
--- OUTSIDE RECORDS SUMMARY | 2020-10-17 13:18 | XMS REPORT | Continuity of Care Document ---
:1945 Author Organization [facility] t Address [address] [place] [address] Care Team Providers Name Role Phone Mayito Primary Care Physician Jose F BRASHER, L Attending Clinician Reddy BRASHER, R. Attending Clinician Janeth BRASHER Attending Clinician JACKELINE Attending Clinician Unavailable JACKELINE Admitting Clinician Unavailable Payers Payer Name Policy Type Policy Effective Expiration Source Number Date Date MEDICAREMEDICARE PART [id number] 2009 [place] A AND 00:00:00 Rastafarian [id number] 2009[place] [facility] [id number] [address] [place] OF 00:00:00 Rastafarian [id number]/ 8-Present[facility]mercial MEDICAREMEDICARE PART [id number] 2009 Un iversity of A & 00:00:00 [facility] RenafdcgJY820/06/2009- [facility] [phone] ROSAILND PERKINS [phone] [facility]UAL [facility] [id number] 2017 Uni versity of OF 00:00:00 [facility] [id number] 2017 Bra [facility] -PresentHMO/PPO/POS MEDICAREMEDICARE A [id number] ZAIDA Tia solomon Melodie - [id number] 2009- 00:00:00 [facility] PresentMedicare MCR [id number] 2017 ZAIDA [place] - SUPPLEMENT/INDIVIDUAL 00:00:00 [facility] MUTUAL OF [id number] 2017 -PresentMedigap Problems Condition Condition Condition Status Onset Resolution Last Treating Co mments Source Name Details Category Date Date Treatment Clinician Date DDD DDD Disease Active 2019-06 [place] (degenerat (degenerat 0-29 Me thodi jordyn disc jordyn disc 00:00: st disease), disease), 00 cervical cervical Alteration Alteration Disease Active 2019-06 [place] s of s of 0-29 Methodi sensations sensations 00:00: st 00 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 3-06 Me thodi right knee right knee 00:00: st replacemen replacemen 00 t 07/29/19 t 07/29/19 Osteoarthr Osteoarthr Disease Active [place] itis of itis of 2-27 Methodi right knee right knee 00:00: st 00 Chronic Chronic Disease Active [place] pain of pain of 1-20 Methodi right knee right knee 00:00: st 00 Primary Primary Disease Active [place] osteoarthr osteoarthr 1-15 Me thodi itis of itis of 00:00: st right knee right knee 00 Acute Acute Disease Active [place] medial medial 1-15 Methodi meniscus meniscus 00:00: st tear of tear of 00 right knee right knee Acute Acute Disease Active [place] lateral lateral 1-15 Methodi meniscus meniscus 00:00: st tear of tear of 00 left knee left knee Bilateral Bilateral Disease Active Uni vers hand pain hand pain 2-22 ity of 00:00: [place] 00 Medical Branch Allergies, Adverse Reactions, Alerts Allergy Allergy Status Severity Reaction(s) Onset Inactive Treating Comm ents Source Name Type Date Date Clinician Sulfa Propensi Active Rash [place] (Sulfona ty to 1-15 Methodi mide adverse 00:00: st Antibiot reaction 00 ics) s to drug Sulfacet Propensi Active Rash Univer s Sod-Sulf ty to 2-25 ity of -Urea-Me adverse 00:00: [place] r-Ti reaction 00 Medical s Branch Family History Family Member Diagnosis Comments Start Date Stop Date Source Natural father Cancer [facility] Me thodist Natural father Heart attack Ross Vasquez Natural father Heart disease [place] Rastafarian Natural mother Kidney disease [place]ast[facility] Paternal aunt Heart attack [facility] ethodist Paternal aunt Heart disease [facility]ast[facility] Paternal aunt Cancer [facility] hodist Paternal grandfather Cancer [place] Rastafarian Paternal uncle Heart attack Ross Vasquez Social History Social Habit Start Date Stop Date Quantity Comments Source Exposure to Not sure [place] Metho dist SARS-CoV-2 (event) Cigarettes smoked 2020-03-30 2020-03-30 Ross Vasquez current (pack per 00:00:00 00:00:00 day) - Reported Cigarette 2020-03-30 2020-03-30 Ross Aguirre ist pack-years 00:00:00 00:00:00 Tobacco use and 2020-03-30 2020-03-30 Never used Ross Heaton ethodist exposure 00:00:00 00:00:00 Alcohol intake 2020-03-30 2020-03-30 Ex-drinker [facility] thodist 00:00:00 00:00:00 (finding) Alcohol Comment 2019-07-15 2019-07-15 Rarely [place] Heaton ethodist 00:00:00 00:00:00 History of tobacco 2004-06-02 2014-06-02 Current smoker Prasanna nguyen Rastafarian use 00:00:00 00:00:00 [birth year] Ross Heaton ethodist 00:00:00 00:00:00 Smoking Status Start Date Stop Date Source Never smoker [facility] Former smoker 2020-03-30 00:00:00 2020-03-30 00:00:00 Ross Vasquez Medications Ordered Filled Start Stop Current Ordering Indication Dosage Frequency Signature Comments Components Source Medication Medication Date Date Medication? Clinician (SIG) Name Name naproxen 2019-06 Yes 1{tbl} Q.5D Take 1 [place] on sodium 0-29 tablet by Alyssa (ALEVE) 220 10:10: mouth 2 st mg capsule 30 (two) times a day. glucosamine 2019-06 Yes 1{tbl} QD Take 1 [place] /chondr pritchett 0-29 tablet by Meth gabriel A sod 10:10: mouth st (OSTEO 30 daily. BI-FLEX ORAL) TURMERIC 2019- Yes QD Take by [place] ORAL 0-29 mouth Methodi 10:10: every st 30 morning. cranberry 2019-06 Yes 1{tbl} Q.5D Take 1 [place] [...] mouth st 30 daily. NON 2019-06 Yes burgamot [facility] FORMULARY 0-29 supplement Meth gabriel 10:10: st 30 sertraline Yes 150mg 150 mg. [place] (ZOLOFT) 1-11 Methodi 100 MG 00:00: st tablet 00 omeprazole 2019- Yes 20mg QD Take 20 mg [place] (PriLOSEC) 1-10 by mouth Metho di 20 MG 00:00: every st capsule 00 morning. EZETIMIBE 2018-06 Yes Take by [facility] [place] [facility] ers ORAL 2-02 mouth. ity of 22:25: [address] EZETIMIBE 2018-06 Yes Take by [facility] [place] [facility] ers ORAL 2-02 mouth. ity of 22:25: [address] LORAZepam 2018-06 Yes .5mg Q.5D Take [...] tablet by ity of tablet 00:00: mouth (two) Medical times Branch daily with meals. naproxen 2017-0 Yes 500mg Take 1 Univer s 500 mg 4-13 tablet by ity of tablet 00:00: mouth (two) Medical times Branch daily with meals. diclofenac 2017-0 Yes 75mg Take 1 Unive rs 75 mg EC 2-22 tablet by ity of tablet 00:00: mouth (two) Medical times Branch daily with meals. methylPREDN 2017-0 Yes 84mg Take 21 Uni vers ISolone 2-22 tablets by ity of (MEDROL, 00:00: mouth [place] JORGE,) 4 mg 00 SEE-INSTRU Med ical tablets CTIONS. Branch follow package directions diclofenac 2017-0 Yes 75mg Take 1 Unive rs 75 mg EC 2-22 tablet by ity of tablet 00:00: mouth (two) Medical times Branch daily with meals. [...] tablets CTIONS. Branch follow package directions LORazepam 2016-0 Yes Univers (ATIVAN) 2-24 ity [...] di 25 MG 00:00: nightly. st tablet 00 atenolol Yes Univers (TENORMIN) 1-11 ity of 25 mg 00:00: [place] tablet 00 Medical Branch atenolol Yes Univers (TENORMIN) 1-11 ity of 25 mg 00:00: [place] tablet 00 Medical Branch omeprazole 2014-06 Yes Univers (PRILOSEC) 2-16 ity of 40 mg 00:00: [place] capsule 00 Medical Branch omeprazole 2014-06 Yes Univers (PRILOSEC) 2-16 ity of 40 mg 00:00: [place] capsule 00 Medical Branch levothyroxi 2014-06 Yes 88ug QD Take 88 [address] ne 2-04 mcg by Methodi (SYNTHROID) 00:00: mouth st 88 mcg 00 every tablet morning. levothyroxi 2014-06 Yes Univer s ne 2-04 ity of (SYNTHROID) 00:00: [place] 88 mcg 00 Medical tablet Branch levothyroxi 2014-06 Yes Univer s ne 2-04 ity of (SYNTHROID) 00:00: [place] 88 mcg 00 [facility] Branch Immunizations Ordered Immunization Filled Immunization Date Status Commen ts Source Name Name PFIZER COVID-19 MRNA 2020-07-03 Completed [place] VACCINATION 00:00:00 Rastafarian PFIZER COVID-19 MRNA 2020-06-12 Completed [place] VACCINATION 00:00:00 Rastafarian Vital Signs Vital Name Observation Time Observation Value Comments Source Systolic blood 2020-10-06 15:33:00 121 mm[Hg] Clifford sity of [facility] Diastolic blood 2020-10-06 15:33:00 62 mm[Hg] Unive rsity of [facility] Heart rate 2020-10-06 15:33:00 50 /min Universi ty of [facility] Body height 2020-10-06 15:33:00 167.6 cm Universi ty of [facility] Body weight 2020-10-06 15:33:00 84.823 kg Universi ty [facility] BMI 2020-10-06 15:33:00 30.18 kg/m2 Universi ty [facility] Systolic blood 2020-10-06 15:33:00 121 mm[Hg] Univer sity of [place] pressure [facility] Branch Diastolic blood 2020-10-06 15:33:00 62 mm[facility]Hg[facility] 2020-10-06 15:33:00 50 /min Universi ty [facility] Body height 2020-10-06 15:33:00 167.6 cm Universi ty [facility] Body weight 2020-10-06 15:33:00 84.823 kg Universi ty [facility] BMI 2020-10-06 15:33:00 30.18 kg/m2 Universi ty [facility] Body height 2020-03-30 10:00:00 167.6 cm [facility] Body weight 2020-03-30 10:00:00 86.183 kg [facility] BMI 2020-03-30 10:00:00 30.67 kg/m2 [facility] Procedures Procedure Date / Time Performed Performing Clinician [facility] e MRI SPINE EXTERNAL 2020-03-15 14:13:00 Unique Blakely STUDY MRA HEAD WITH & 2020-01-03 10:54:[address] [facility] - WITHOUT IV CONTRAST Medical Cent er MRA NECK WITH & 2020-01-03 10:54:[address] [facility] - WITHOUT CONTRAST Medical Center MR BRAIN WITH & 2020-01-03 10:54:[address] [facility] - WITHOUT IV CONTRAST Medical Cent er Plan of Care Planned Activity Planned Date Details Comments Source Future Scheduled 2021-10-06 Depression screening [facility] [place] Test 00:00:00 (procedure) [code = Medical Branch 274215549] Future Scheduled 2021-10-06 Depression screening [facility] [place] Test 00:00:00 (procedure) [code = Medical Branch 894881400] Future Scheduled 2021-01-31 INFLUENZA VACCINE [facility] [place] Test 00:00:00 (Season Ended) [code = Medic al Branch INFLUENZA VACCINE (Season Ended)] Future Scheduled 2021-01-31 INFLUENZA VACCINE [facility] [place] Test 00:00:00 (Season Ended) [code = Medic al Branch INFLUENZA VACCINE (Season Ended)] Future Scheduled 2020-12-31 INFLUENZA VACCINE [place] [facility] Test 00:00:00 [code = INFLUENZA VACCINE] Future [...] 00:00:00 (1 of 1 - Medical Center [id number] PCV13) [code = PNEUMOCOCCAL 65+ YRS (1 of 1 - [id number])] Future Scheduled 2009 65+ PNEUMOCOCCAL [facility] Test 00:00:00 VACCINE (1 of 1 - PPSV23) [code = 65+ PNEUMOCOCCAL VACCINE (1 of 1 - PPSV23)] Future Scheduled 2009 Medicare Annual Universi [facility] Test 00:00:00 Wellness Visit Medical Branc h (procedure) [code = 509324460391298] Future Scheduled 2009 Screening for [facility] Test 00:00:00 osteoporosis Medical Branch (procedure) [code = 118427360] Future Scheduled 2009 PNEUMOCOCCAL VACCINES Un iversity of [place] Test 00:00:00 65+ (1 of 1 - PPSV23) Medica l Branch [code = PNEUMOCOCCAL VACCINES 65+ (1 of 1 - PPSV23)] Future Scheduled 2009 Medicare Annual Universi [facility] Test 00:00:00 Wellness Visit Medical Branc h (procedure) [code = 825461429694097] Future Scheduled 2009 Screening for [facility] Test 00:00:00 osteoporosis Medical Branch (procedure) [code = 695642223] Future Scheduled 2009 PNEUMOCOCCAL VACCINES [facility] [place] Test 00:00:00 65+ (1 of 1 - PPSV23) Medica l Branch [code = PNEUMOCOCCAL VACCINES 65+ (1 of 1 - PPSV23)] Future Scheduled 1994 BREAST CANCER [facility] thodist Test 00:00:00 SCREENING [code = BREAST CANCER SCREENING] Future Scheduled 1994 COLONOSCOPY SCREENING [place] [facility] Test 00:00:00 [code = COLONOSCOPY SCREENING] Future Scheduled 1994 SHINGLES VACCINES (#1) [place] [facility] Test 00:00:00 [code = SHINGLES VACCINES (#1)] Future Scheduled 1994 Screening for occult Uni [facility] [place] Test 00:00:00 blood in feces Medical Branc h (procedure) [code = 880019084] Future Scheduled 1994 Stool DNA-based [facility] Test 00:00:00 colorectal cancer Medical Br anch screening (procedure) [code = 882479880114243] Future Scheduled 1994 [facility]00 sigmoidoscopy Medical Branch (procedure) [code = 88854328] Future Scheduled 1994 Screening for [facility] Test 00:00:00 malignant neoplasm of Medica l Branch colon (procedure) [code = 125949678] Future Scheduled 1994 Screening for [facility] Test 00:00:00 malignant neoplasm of Medica l Branch colon (procedure) [code = 598558185] Future Scheduled 1994 [facility]00 Vaccine (SHINGRIX) (1 Medica l Branch of 2) [code = Zoster Recombinant Vaccine (SHINGRIX) (1 of 2)] Future Scheduled 1994 Screening for occult [facility] [place] Test 00:00:00 blood in feces Medical Branc h (procedure) [code = 640625052] Future Scheduled 1994 Stool DNA-based [facility] Test 00:00:00 colorectal cancer Medical Br anch screening (procedure) [code = 853002397603032] Future Scheduled 1994 Flexible fiberoptic [facility]:00 sigmoidoscopy Medical Branch (procedure) [code = 59927175] Future Scheduled 1994 Screening for [facility] Test 00:00:00 malignant neoplasm of Medica l Branch colon (procedure) [code = 528856623] Future Scheduled 1994 Screening for [facility] Test 00:00:00 malignant neoplasm of Medica l Branch colon (procedure) [code = 152936475] Future Scheduled 1994 Zoster [facility]com[facility]00 Vaccine (SHINGRIX) (1 Medica l Branch of 2) [code = Zoster Recombinant Vaccine (SHINGRIX) (1 of 2)] Future Scheduled 1984 Screening for [facility] Test 00:00:00 malignant neoplasm of Medica l Branch breast (procedure) [code = 111494119] Future Scheduled 1984 Screening for [facility] Test 00:00:00 malignant neoplasm of Medica l Branch breast (procedure) [code = 165875462] Future Scheduled 1963-11-29 DTaP,Tdap,and Td Univers ity [facility] Test 00:00:00 Vaccines (1 - Tdap) Medical Branch [code = DTaP,Tdap,and Td Vaccines (1 - Tdap)] Future Scheduled 1963-11-29 DTaP,Tdap,and Td Univers ity [facility] Test 00:00:00 Vaccines (1 - Tdap) Medical Branch [code = DTaP,Tdap,and Td Vaccines (1 - Tdap)] Future Scheduled 1962 [facility] 00:00:00 (procedure) [code = 860723797] Future Scheduled 1962 Hepatitis C screening [facility] [place] Test 00:00:00 (procedure) [code = Medical Branch 250617318] Future Scheduled 1962 Hepatitis C screening [facility] [place] Test 00:00:00 (procedure) [code = Medical Branch 177863809] Future Scheduled [address] [facility] Test 00:00:00 malignant neoplasm of Medica l Center colon (procedure) [code = 936577622] Encounters Start End Encounter Admission Attending Care Care Encounter Source Date/Time Date/Time Type Type Clinicians Facility Department ID 2020-10-13 2020-10-13 Telephone [facility] [id number] 00:00:00 00:00:00 Bruno Estrada [facility] [id number] Surgical [id number] Specialti [id number] es 198 [place] 2020-10-10 2020-10-10 [facility] [id number] 00:00:00 00:00:00 Bruno Estrada [facility] [id number] Surgical [id number] Specialti [id number] es 198 [place] 2020-10-06 2020-10-06 [facility] [id number] 10:37:14 23:59:00 Encounter Bruno Estrada [facility] [id number] Surgical [id number] Specialti [id number] es 809 [place] 2020-10-06 2020-10-06 Office [facility] [id number] 10:27:50 10:56:15 Visit Bruno Estrada [facility] [id number] Surgical [id number] Specialti [id number] es 198 [place] 2020-07-03 2020-07-03 Outpatient [facility] [id number] 729 [place] 00:00:00 00:00:00 117 Method i 2020-06-12 2020-06-12 Outpatient [facility] [id number] [place] 00:00:00 00:00:00 522 Method i 2020-03-30 2020-03-30 Outpatient [facility] [id number] [place] 00:00:00 00:00:00 UNIQUE 912 Method i 2020-03-30 2020-03-30 Outpatient SASSA, [facility] [id number] [place] 00:00:00 00:00:00 UNIQUE 275 Method i 2019-09-17 2019-09-17 Outpatient JACKELINE, [facility] [id number] [place] 00:00:00 00:00:00 LEW [address] 2019-08-06 2019-08-06 Outpatient JACKELINE, [facility] [id number] 004 [place] 00:00:00 00:00:00 LEW [address] 2019-08-06 2019-08-06 Outpatient JACKELINE, [facility] [id number] [place] 00:00:00 00:00:00 LEW [address] 2019-07-29 2019-07-30 Outpatient JACKELINE, [facility] [id number] [place] 00:00:00 00:00:00 LEW [address] 2019-06-16 2019-06-16 Outpatient [facility] [id number] 835 [place] 00:00:00 00:00:[address] Results Test Description Test Time Test Comments Results Result Sourc e Comments MRI Spine 2020-03-03 This exam was not [facility] External [facility] and has not been interpreted by a Rastafarian Provider. The exam was imported into our imaging system. MR, MRA, BRAIN, FINAL REPORT PATIENT WITH 3 ID: [id number] MR, 11:17:00 BRAIN, WITH \T\ WITHOUT CONTRAST, [...] flow-limiting stenosis Posterior cerebral arteries: Functional -type MANAGER FRONT on the right. Normal flow-related enhancement within the bilateral MANAGER FRONT P1-P2 segments without flow-limiting stenosisAdditional findings: None. [...] MDReport Verified Date/Time: 01/03/2020 11:17:26 Reading Location: [facility] B1 C013V Neuro Reading Room , MRA, NECK, FINAL REPORT PATIENT WITH 3 ID: [id number] MR, 11:17:00 BRAIN, WITH \T\ WITHOUT CONTRAST, [...] flow-limiting stenosis Posterior cerebral arteries: Functional -type MANAGER FRONT on the right. Normal flow-related enhancement within the bilateral MANAGER FRONT P1-P2 segments without flow-limiting stenosisAdditional findings: None. [...] MDReport Verified Date/Time: 01/03/2020 11:17:26 Reading Location: [facility] C013V Neuro Reading Room , BRAIN, WITH FINAL REPORT PATIENT 3 ID: [id number] MR, 11:17:00 BRAIN, WITH \T\ WITHOUT CONTRAST, [...] flow-limiting stenosis Posterior cerebral arteries: Functional -type MANAGER FRONT on the right. Normal flow-related enhancement within the bilateral MANAGER FRONT P1-P2 segments without flow-limiting stenosisAdditional findings: None. [...] MDReport Verified Date/Time: 01/03/2020 11:17:26 Reading Location: [address] Neuro Reading Room head with Interface, External [facility] and without 3 Ris In - 01/03/2020 - Me dical contrast 11:17:00 11:19 AM [facility] Center REPORT MR, BRAIN, WITH \T\ WITHOUT [...] flow-limiting stenosis Posterior cerebral arteries: Functional -type MANAGER FRONT on the right. Normal flow-related enhancement within the bilateral MANAGER FRONT P1-P2 segments without flow-limiting stenosisAdditional findings: None. [...] MDReport Verified Date/Time: 01/03/2020 11:17:26 Reading Location: [facility] Neuro Reading Room neck without 2020-01-0 Interface, External [facility] & with IV 3 Ris In - 01/03/2020 - Med ical contrast 11:17:00 11:19 [facility], BRAIN, WITH \T\ WITHOUT [...] flow-limiting stenosis Posterior cerebral arteries: Functional -type MANAGER FRONT on the right. Normal flow-related enhancement within the bilateral MANAGER FRONT P1-P2 segments without flow-limiting stenosisAdditional findings: None. [...] MDReport Verified Date/Time: 01/03/2020 11:17:26 Reading Location: [facility] C013V Neuro Reading Room brain without 2020-01-0 Interface, External [facility] & with IV 3 Ris In - 01/03/2020 - Med ical contrast 11:17:00 11:19 AM [facility] Center REPORT MR, BRAIN, WITH \T\ WITHOUT [...] flow-limiting stenosis Posterior cerebral arteries: Functional -type MANAGER FRONT on the right. Normal flow-related enhancement within the bilateral MANAGER FRONT P1-P2 segments without flow-limiting stenosisAdditional findings: None. MRA NECK:Common carotid arteries: Unremarkable. Bifurcations: No flow-limiting stenosis. Cervical internal carotid arteries: No flow limiting stenosis.Vertebral arteries: Origins are not well-seen. No flow limiting stenosis within the visualized cervical vertebral arterial segments. Limited assessment of the V3 segment secondary to noncontrast technique.
[2020-10-17 14:39] LABS: Absolute Lymphocytes (CBC) 0.6 K/uL (0.7-4.9); Basophils % 0.3 % (0-1.3); Lymphocytes % 6.9 % (15.3-44.8); MPV 8.3 fL (7.6-11.3); RBC Red Blood Cell Count 4.47 M/uL (3.86-4.86)
[2020-10-17] MEDS ORDERED: MORPHINE 4 MG/ML SYR ONE (14:50)
[2020-10-17] MEDS ORDERED: NA CHLORIDE 0.9% 500 ML ONE (14:51)
[2020-10-17] MEDS ORDERED: DIAZEPAM 10 MG/2 ML INJ SYRINGE ONE ×2 (14:51→18:45)
[2020-10-17 14:52] LABS: Bilirubin Total 0.5 mg/dL (0.2-1.0); Potassium 4.1 mmol/L (3.5-5.1); Protein, Total 7.3 g/dL (6.4-8.2)
--- NOTE | 2020-10-17 15:16 | RAD REPORT ---
EXAM DESCRIPTION: [place] Single View10/17/2020 3:07 pm CLINICAL HISTORY: Back pain/syncope COMPARISON: 2016 FINDINGS: The lungs appear clear of acute infiltrate. The heart is normal size IMPRESSION: No acute abnormalities displayed
--- NOTE | 2020-10-17 15:36 | RAD REPORT ---
EXAM DESCRIPTION: RAD - Abdomen 1 View (KUB) - 10/17/2020 3:21 pm CLINICAL HISTORY: Abdomen pain. FINDINGS: The bowel gas pattern is unremarkable. Moderate amount of stool within the left colon
[2020-10-17] MEDS ORDERED: NA CHLORIDE 0.9% 100 ML ONE (16:37)
[2020-10-17] MEDS ORDERED: METHOCARBAMOL 1,000 MG/10 ML VIAL IV ONE (16:37)
--- NOTE | 2020-10-17 17:24 | ER ---
Nurse's Notes [facility] Name: Bernarda Bond Age: 74 yrs Sex: Female : 1945 Arrival Date: 10/17/2020 Time: 13:16 Bed 16 Private MD: Diagnosis: Constipation;Muscle spasm Presentation: 10/17 13:17 Chief complaint: EMS states: back spasms and nausea. Was seen here in the ER on Friday sv and dx with lumbar fracture. Vitals WNL. Risk Assessment: Do you want to hurt yourself or someone else? Patient reports no desire to harm self or others. Onset of symptoms was October 17, 2020. 13:17 Method Of Arrival: [facility] sv 13:17 Acuity: AWAIS 3 sv Historical: - Allergies: 13:18 Sulfa (Sulfonamide Antibiotics); sv - PMHx: 13:18 High Cholesterol; Heart Murmur; Hypertension; sv - PSHx: 13:18 Hysterectomy; Cholecystectomy; sv Screenin:45 Abuse screen: Denies threats or abuse. Nutritional screening: No deficits noted. vg1 Tuberculosis screening: No symptoms or risk factors identified. Fall Risk No fall in past 12 months (0 pts). No secondary diagnosis (0 pts). IV access (20 points). Ambulatory Aid- None/Bed Rest/Nurse Assist (0 pts). Gait- Normal/Bed Rest/Wheelchair (0 pts) Mental Status- Oriented to own ability (0 pts). Total Bowser Fall Scale indicates No Risk (0-24 pts). Assessment: 13:33 General: Appears in no apparent distress. uncomfortable, Behavior is calm, cooperative. vg1 Pain: Complains of pain in lower back Pain currently is 8 out of 10 on a pain scale. Pain began 2-3 days ago. Neuro: Level of Consciousness is awake, alert, obeys commands, Oriented to person, place, time, situation. Cardiovascular: Patient's skin is warm and dry. Respiratory: Airway is patent Respiratory effort is even, unlabored. GI: Abdomen is flat, non-distended, Reports diarrhea, nausea, Pt stated had a BM on the way to ED; Rox care was completed. : No signs and/or symptoms were reported regarding the genitourinary system. EENT: No signs and/or symptoms were reported regarding the EENT system. Derm: Skin is intact, is healthy with good turgor. Musculoskeletal: Circulation, motion, and sensation intact. 14:42 Reassessment: Patient appears in no apparent distress at this time. No changes from vg1 previously documented assessment. Patient and/or family updated on plan of care and expected duration. Pain level reassessed. Patient is alert, oriented x 3, equal unlabored respirations, skin warm/dry/pink. 17:22 Reassessment: Patient appears in no apparent distress at this time. Patient and/or vg1 family updated on plan of care and expected duration. Pain level reassessed. Patient is alert, oriented x 3, equal unlabored respirations, skin warm/dry/pink. Pt ambulated well to the restroom. Vital Signs: 13:44 BP 149 / 69 Supine; Pulse 63; Resp 16; Temp 97.6(O); Pulse Ox 98% ; vg1 14:00 BP 159 / 98; Pulse 60; Resp 16; Pulse Ox 98% on R/A; vg1 17:23 BP 139 / 71; Pulse 68; Resp 16; Pulse Ox 95% on R/A; vg1 ED Course: 13:16 Patient arrived in ED. sv 13:17 Triage completed. sv 13:18 Arm band placed on. sv 13:27 Herson Mcclain PA is PHCP. [facility] 13:27 Reagan Stokes MD is Attending Physician. [facility] 13:42 lEi Cooper, RN is Primary Nurse. vg1 13:45 Patient has correct armband on for positive identification. Placed in gown. Bed in low vg1 position. Call light in reach. Side rails up X2. Adult w/ patient. 14:04 Warm blanket given. Pulse ox on. NIBP on. mh5 14:05 EKG done, by ED staff, reviewed by Reagan Stokes MD. 5 14:23 Troponin (emerg Dept Use Only) Sent. 5 14:23 Abdomen 1 View (KUB) XRAY Sent. mh5 14:23 Chest Single View XRAY Sent. 5 14:23 CMP Sent. 5 14:23 CBC with Diff Sent. 5 14:23 Initial lab(s) drawn, by al, sent to lab. Maintain EMS IV. Dressing intact. Site clean mh5 \T\ dry. 18:34 No provider procedures requiring assistance completed. IV discontinued, intact, vg1 bleeding controlled, No redness/swelling at site. Pressure dressing applied. Administered Medications: 14:37 Drug: morphine 4 mg Route: IVP; Site: right antecubital; vg1 18:36 Follow up: Response: No adverse reaction vg1 14:37 Drug: NS 0.9% 500 ml Route: IV; Rate: bolus; Site: right antecubital; vg1 18:36 Follow up: IV Status: Completed infusion; IV Intake: 500ml vg1 14:39 Drug: Valium (diazepam) 5 mg Route: IVP; Site: right antecubital; vg1 18:36 Follow up: Response: No adverse reaction vg1 16:24 Drug: Robaxin (methocarbamol) 1 grams Route: IVPB; Infused Over: 1 hrs; Site: right kg antecubital; 17:21 Follow up: IV Status: Completed infusion; IV Intake: 100ml vg1 18:33 Drug: Valium (diazepam) 5 mg Route: IVP; Site: right antecubital; vg1 18:33 Follow up: Response: Medication administered at discharge. vg1 Intake: 17:21 IV: 100ml; Total: 100ml. vg1 18:36 IV: 500ml; Total: 600ml. vg1 Outcome: 17:23 Discharge ordered by . flako 18:34 Discharged to home ambulatory. vg1 18:34 Condition: stable 18:34 Discharge instructions given to patient, Instructed on discharge instructions, follow up and referral plans. medication usage, Demonstrated understanding of instructions, follow-up care, medications, Prescriptions given X 2. 18:35 Patient left the ED. vg1 Signatures: Susanna Lechuga, RN Herson Walsh PA PA jmm Martinez, Maria Eli Jara RN RN vg1 Kajal Camacho kg Corrections: (The following items were deleted from the chart) 13:46 13:44 BP 149 / 69 Supine; Pulse 63bpm; Resp 16bpm; Pulse Ox 98%; vg1 vg1
--- NOTE | 2020-10-17 17:24 | EDPHYS ---
Physician Documentation [facility] Name: Bernarda Bond Age: 74 yrs Sex: Female : 1945 Arrival Date: 10/17/2020 Time: 13:16 Bed 16 Private MD: ED Physician Reagan Stokes HPI: 10/17 13:27 This 74 yrs old Female presents to ER via EMS with complaints of Nausea, Back jmm spasms. 13:27 The patient presents to the emergency department with nausea. Onset: The jmm symptoms/episode began/occurred today. Possible causes:. 13:27 The symptoms are aggravated by nothing. The symptoms are alleviated by nothing. jmm 13:27 This is a 74 year old female with a history of htn, hlp that presents to the ED with jmm complaints of near syncope, constipation, back spasms. Patient was initially evaluated this past Friday after having a fall and ongoing pain since the 30 of September. Denies bowel or bladder incontinence. Patient states she had no had a bowel movement in 2 days and took castor oil. Patient had 2 bowel movement states she nearly passed out and her spasms have worsened. Historical: - Allergies: 13:18 Sulfa (Sulfonamide Antibiotics); sv - PMHx: 13:18 High Cholesterol; Heart Murmur; Hypertension; sv - PSHx: 13:18 Hysterectomy; Cholecystectomy; sv ROS: 13:27 Constitutional: Negative for fever, chills, and weight loss, Cardiovascular: Negative jmm for chest pain, palpitations, and edema, Respiratory: Negative for shortness of breath, cough, wheezing, and pleuritic chest pain. 13:27 Abdomen/GI: Positive for nausea, constipation. 13:27 Back: Positive for pain with movement. 13:27 Neuro: Positive for near syncope. 13:27 All other systems are negative. Exam: 13:27 Head/Face: atraumatic. Eyes: EOMI, no conjunctival erythema appreciated ENT: Moist jmm Mucus Membranes Neck: Trachea midline, Supple Chest/axilla: Normal chest wall appearance and motion. Cardiovascular: Regular rate and rhythm. No edema appreciated Respiratory: Normal respirations, no respiratory distress appreciated 13:27 Skin: General appearance color normal 13:27 Constitutional: The patient appears alert, awake, anxious, uncomfortable. 13:27 Abdomen/GI: Inspection: abdomen appears normal, Bowel sounds: normal, Palpation: soft, nontender, in all quadrants. 13:27 Back: pain, that is moderate, of the left low back. 13:27 Musculoskeletal/extremity: ROM: intact in all extremities. 13:27 Skin: Appearance: Color: normal in color. 13:27 Neuro: Motor: is normal. 13:27 Psych: Behavior/mood is pleasant, cooperative. Vital Signs: 13:44 BP 149 / 69 Supine; Pulse 63; Resp 16; Temp 97.6(O); Pulse Ox 98% ; vg1 14:00 BP 159 / 98; Pulse 60; Resp 16; Pulse Ox 98% on R/A; vg1 17:23 BP 139 / 71; Pulse 68; Resp 16; Pulse Ox 95% on R/A; vg1 MDM: 13:27 Patient medically screened. flako 17:21 Data reviewed: vital signs, nurses notes. Counseling: I had a detailed discussion with flako the patient and/or guardian regarding: the historical points, exam findings, and any diagnostic results supporting the discharge/admit diagnosis, lab results, radiology results, the need for outpatient follow up, to return to the emergency department if symptoms worsen or persist or if there are any questions or concerns that arise at home. ED course: Patient able to ambulate in the ED. I do not suspect abscess, cord compression, or cauda equina. Patient will follow up with spine and is otherwise given strict return precautions. Patient understood and agrees with the plan of care. . 10/17 13:29 Order name: CBC with Diff [facility] 10/17 13:29 Order name: CMP [facility] 10/17 13:37 Order name: Troponin (emerg Dept Use Only) [facility] 10/17 14:41 Order name: CBC with Automated Diff; Complete Time: 14:42 EDUT 10/17 14:52 Order name: Comprehensive Metabolic Panel; Complete Time: 14:53 EDUT 10/17 14:54 Order name: Troponin (Emerg Dept Use Only); Complete Time: 14:57 EDUT 10/17 13:37 Order name: Chest Single View XRAY [facility] 10/17 13:37 Order name: Abdomen 1 View (KUB) XRAY [facility] 10/17 15:17 Order name: RAD; Complete Time: 15:23 EDUT 10/17 15:37 Order name: RAD; Complete Time: 15:37 [facility] 10/17 13:28 Order name: Saline Lock; Complete Time: 14:04 [facility] 10/17 13:37 Order name: EKG - Nurse/Tech; Complete Time: 14:04 [facility] 10/17 15:39 Order name: Misc. Order: ambulate patient; Complete Time: 17:21 jm Administered Medications: 14:37 Drug: morphine 4 mg Route: IVP; Site: right antecubital; vg1 18:36 Follow up: Response: No adverse reaction vg1 14:37 Drug: NS 0.9% 500 ml Route: IV; Rate: bolus; Site: right antecubital; vg1 18:36 Follow up: IV Status: Completed infusion; IV Intake: 500ml vg1 14:39 Drug: Valium (diazepam) 5 mg Route: IVP; Site: right antecubital; vg1 18:36 Follow up: Response: No adverse reaction vg1 16:24 Drug: Robaxin (methocarbamol) 1 grams Route: IVPB; Infused Over: 1 hrs; Site: right kg antecubital; 17:21 Follow up: IV Status: Completed infusion; IV Intake: 100ml vg1 18:33 Drug: Valium (diazepam) 5 mg Route: IVP; Site: right antecubital; vg1 18:33 Follow up: Response: Medication administered at discharge. vg1 Disposition: 18:40 Co-signature as Attending Physician, Reagan Stokes MD. rn Disposition: 10/17/20 17:23 Discharged to Home. Impression: Constipation, Muscle spasm. - Condition is Stable. - Discharge Instructions: Constipation, Adult, Spasticity. - Prescriptions for Robaxin 500 mg Oral Tablet - take 2 tablet by ORAL route every 6 hours As needed; 40 tablet. Valium 10 mg Oral Tablet - take 1 tablet by ORAL route every 8 hours As needed; 12 tablet. - Medication Reconciliation Form, Thank You Letter, Antibiotic Education, Prescription Opioid Use form. - Follow up: Private Physician; When: 2 - 3 days; Reason: Recheck today's complaints, Continuance of care, Re-evaluation by your physician. Signatures: Dispatcher [employer] Susanna Castillo RN RN sv Mickail, Joel, PA PA jmm Nieto, Roman, MD MD rn Garcia, Victoria, RN RN 1 Kajal Camacho kg Corrections: (The following items were deleted from the chart) 15:03 13:27 Possible causes: flako arriola 18:35 17:23 10/17/2020 17:23 Discharged to Home. Impression: Constipation; Muscle spasm. vg1 Condition is Stable. Forms are Medication Reconciliation Form, Thank You Letter, Antibiotic Education, Prescription Opioid Use. Follow up: Private Physician; When: 2 - 3 days; Reason: Recheck today's complaints, Continuance of care, Re-evaluation by your physician. flako
[2020-10-17 19:10] VITALS: TEMP 97.6
[2020-10-17 19:13] VITALS: BP 139/71; O2SAT 95
--- NOTE | 2020-10-18 08:44 | EKG ---
Test Date: 2020-10-17 Test Time: 14:00:34 [employer] Body Repair Technician: JAC MEASUREMENT RESULTS: Intervals: Rate: 57 PA: 156 QRSD: 80 QT: 426 QTc: 414 War: P: 69 PA: 156 QRS: 45 T: 62 INTERPRETIVE STATEMENTS: Sinus bradycardia Otherwise normal ECG Compared to ECG 08/24/2015 14:18:27 Myocardial infarct finding no longer present Electronically Signed On 10-18-20 08:41:39 CDT by Misael Reed
== END 2020-10-17 18:35 | disposition home or self-care (01) ==
LOC: ER 13:15
DX: K59.00 Constipation, unspecified (principal); M62.830 Muscle spasm of back; W19.XXXA Unspecified fall, initial encounter; I10 Essential (primary) hypertension; Z88.2 Allergy status to sulfonamides
CPT/HCPCS: 85025; 36415; 84484; 80053; 74018; 71045; J3360 ×2; J7040; J2800; 93005; 96361; 96365; 96375; 99284

== ENCOUNTER → 2023-05-31 | Emergency (ER) | payer OTHER ==
[~2023-05-31] MED LIST: HYDROCODONE/APAP 10/325 TAB ONE; MORPHINE 4 MG/ML SYR ONE; ONDANSETRON 4 MG (ODT) TAB ONE
--- NOTE | 2023-05-31 11:21 | RAD REPORT ---
EXAM DESCRIPTION: CT - Pelvis Wo Cont - 05/31/2023 10:48 am CLINICAL HISTORY: Pelvic pain status post fall COMPARISON: None. TECHNIQUE: Computed axial tomography of the pelvis was obtained. Coronal and sagittal reconstruction performed All CT scans are performed using dose optimization technique as appropriate and may include automated exposure control or mA/KV adjustment according to patient size. FINDINGS: The bones are osteoporotic. Old right pubic bone fractures. No acute fracture or dislocation noted Mild contusion lateral subcutaneous tissues right hip IMPRESSION: No acute fracture is seen
--- NOTE | 2023-05-31 11:21 | RAD REPORT ---
EXAM DESCRIPTION: RAD - Femur Right - 05/31/2023 10:52 am CLINICAL HISTORY: Leg pain FINDINGS: Osteoporosis Old right pubic bone fractures. No acute fracture is seen. Right knee prosthesis in place
--- NOTE | 2023-05-31 11:56 | ER ---
Nurse's Notes [facility] Name: Bernarda Bond Age: 77 yrs Sex: Female : 1945 Arrival Date: 05/31/2023 Time: 10:19 Bed 17 Private MD: Diagnosis: Contusion of right hip Presentation: 05/31 10:21 Chief complaint: EMS states: fell out of bed this morning. Reports right hip pain. cp4 Coronavirus screen: Vaccine status: Patient reports receiving the 2nd dose of the covid vaccine. Client denies travel out of the [place] in the last 14 days. At this time, the client does not indicate any symptoms associated with coronavirus-19. Ebola Screen: Patient negative for fever greater than or equal to 101.5 degrees Fahrenheit, and additional compatible Ebola Virus Disease symptoms Patient denies exposure to infectious person. Patient denies travel to an Ebola-affected area in the 21 days before illness onset. No symptoms or risks identified at this time. Initial Sepsis Screen: Does the patient meet any 2 criteria? No. Patient's initial sepsis screen is negative. Does the patient have a suspected source of infection? No. Patient's initial sepsis screen is negative. Risk Assessment: Do you want to hurt yourself or someone else? Patient reports no desire to harm self or others. Onset of symptoms was May 31, 2023. Mechanism of Injury: Fall out of bed. 10:21 Acuity: AWAIS 3 cp4 10:30 Method Of Ar[facility]: [facility] cp4 Triage Assessment: 10:23 General: Appears in no apparent distress. Behavior is calm, cooperative, appropriate cp4 for age. Pain: Complains of pain in right hip Pain currently is 5 out of 10 on a pain scale. Historical: - Allergies: 10:23 Sulfa (Sulfonamide Antibiotics); cp4 - PMHx: 10:23 Heart Murmur; Hypertension; High Cholesterol; cp4 - Immunization history:: Adult Immunizations up to date. - Social history:: Smoking status: Patient denies any tobacco usage or history of. Screenin:36 [facility] ED Fall Risk Assessment (Adult) History of falling in the last 3 months, cp4 including since admission Yes- single mechanical fall (1 pt) Confusion or Disorientation No (0 pts) Intoxicated or Sedated No (0 pts) Impaired Gait No (0 pts) Mobility Assist Device Used No (0 pt) Altered Elimination No (0 pt) Score/Fall Risk Level 0 - 2 = Low Risk Oriented to surroundings, Maintained a safe environment, Educated pt \T\ family on fall prevention, incl call for assistance when getting out of bed, Assessed \T\ reinforced patient's understanding of fall precautions, Hourly rounding (assess needs \T\ fall precautionary measures) done. Abuse screen: Denies threats or abuse. Nutritional screening: No deficits noted. Tuberculosis screening: No symptoms or risk factors identified. Assessment: 12:36 Reassessment: No changes from previously documented assessment. General: Appears in no cp4 apparent distress. Behavior is calm, cooperative, appropriate for age. Vital Signs: 10:21 BP 137 / 50; Pulse 66; Resp 16; Temp 97.9; Pulse Ox 99% ; cp4 10:31 Weight 83.46 kg; cp4 12:38 BP 121 / 66; Pulse 74; Resp 18; Pulse Ox 100% ; cp4 ED Course: 10:21 Patient arrived in ED. jh7 10:21 Tori Russ is Primary Nurse. cp4 10:21 Cecy Lau FNP is PHCP. jh7 10:21 Reagan Stokes MD is Attending Physician. jh7 10:23 Triage completed. cp4 10:23 Arm band placed on right wrist. Patient placed in the treatment room, on a stretcher. cp4 10:50 CT Pelvis wo Cont In Process Unspecified. EDMS 10:54 XRAY Femur RIGHT In Process Unspecified. EDMS 12:36 Bed in low position. Call light in reach. Side rails up X2. Provided Education on: hip cp4 pain and falls. 12:36 No provider procedures requiring assistance completed. cp4 12:36 Patient did not have IV access during this emergency room visit. cp4 Administered Medications: 10:38 Drug: [place] PO 10 mg-325 mg 1 tabs PO once Route: PO; cp4 11:24 Follow up: Response: No adverse reaction cp4 12:39 Follow up: Response: No adverse reaction cp4 11:55 Drug: morphine IM 4 mg IM once Route: IM; Site: right deltoid; cp4 12:39 Follow up: Response: No adverse reaction cp4 11:55 Drug: Ondansetron Oral Disintegrating Tablet Oral Disintegrating Tablet 4 mg PO once cp4 Route: PO; 12:39 Follow up: Response: No adverse reaction cp4 Medication: 12:36 VIS not applicable for this client. cp4 Outcome: 11:56 Discharge ordered by . nick 12:36 Discharged to home via wheelchair, cp4 12:36 Condition: stable 12:36 Discharge instructions given to patient, Instructed on discharge instructions, follow up and referral plans. medication usage, Demonstrated understanding of instructions, follow-up care, medications, Prescriptions given X 1, 12:40 Patient left the ED. cp4 Signatures: Dispatcher [employer] EDMS Cecy Lau FNP FNP jh7 Potter, Christina cp4 Corrections: (The following items were deleted from the chart) 10:31 10:21 Method Of Arrival: EMS: [facility] cp4 cp4
--- NOTE | 2023-05-31 11:57 | EDPHYS ---
Physician Documentation [facility] Name: Bernarda Bond Age: 77 yrs Sex: Female : 1945 Arrival Date: 05/31/2023 Time: 10:19 Bed 17 Private MD: ED Physician Reagan Stokes HPI: 05/31 10:23 This 77 yrs old Female presents to ER via EMS with complaints of R hip pain. jh7 10:23 The patient presents with pain that is acute. The symptoms are located in the right jh7 hip. Patient reports that she rolled out of bed this morning and landed on her right hip. Denies head injury or LOC. The patient does take blood thinners for a valve replacement that occurred this past November. Reports that the fall occurred at 5:30 AM this morning that the pain has progressed since then. No shortening or obvious deformity noted.. Historical: - Allergies: 10:23 Sulfa (Sulfonamide Antibiotics); cp4 - PMHx: 10:23 Heart Murmur; Hypertension; High Cholesterol; cp4 - Immunization history:: Adult Immunizations up to date. - Social history:: Smoking status: Patient denies any tobacco usage or history of. ROS: 10:23 Constitutional: Negative for fever, chills, and weight loss, Eyes: Negative for injury, jh7 pain, redness, and discharge, Neck: Negative for injury, pain, and swelling, Cardiovascular: Negative for chest pain, palpitations, and edema, Respiratory: Negative for shortness of breath, cough, wheezing, and pleuritic chest pain, Abdomen/GI: Negative for abdominal pain, nausea, vomiting, diarrhea, and constipation, Back: Negative for injury and pain, Skin: Negative for injury, rash, and discoloration, Neuro: Negative for headache, weakness, numbness, tingling, and seizure, 10:23 MS/extremity: Positive for decreased range of motion, pain, tenderness, of the R hip really pain, 10:23 All other systems are negative, Exam: 10:23 Constitutional: This is a well developed, well nourished patient who is awake, alert, jh7 and in no acute distress. Head/Face: Normocephalic, atraumatic. Neck: Trachea midline, no thyromegaly or masses palpated, and no cervical lymphadenopathy. Supple, full range of motion without nuchal rigidity, or vertebral point tenderness. No Meningismus. Cardiovascular: Regular rate and rhythm with a normal S1 and S2. No gallops, murmurs, or rubs. Normal PMI, no JVD. No pulse deficits. Respiratory: Lungs have equal breath sounds bilaterally, clear to auscultation and percussion. No rales, rhonchi or wheezes noted. No increased work of breathing, no retractions or nasal flaring. Abdomen/GI: Soft, non-tender, with normal bowel sounds. No distension or tympany. No guarding or rebound. No evidence of tenderness throughout. Back: No spinal tenderness. No costovertebral tenderness. Full range of motion. Skin: Warm, dry with normal turgor. Normal color with no rashes, no lesions, and no evidence of cellulitis. Neuro: Awake and alert, GCS 15, oriented to person, place, time, and situation. Sensory grossly intact. Cerebellar exam normal. 10:23 Musculoskeletal/extremity: Extremities: decreased ROM, pain, tenderness, ROM: limited active range of motion, in the R hip pain, limited active range of motion due to pain, in the R hip pain, Circulation is intact in all extremities. Perfusion: the extremity is normally perfused throughout, pink, warm, with brisk capillary refill, Sensation intact. Weight bearing: is unable to bear weight, Vital Signs: 10:21 BP 137 / 50; Pulse 66; Resp 16; Temp 97.9; Pulse Ox 99% ; cp4 10:31 Weight 83.46 kg; cp4 12:38 BP 121 / 66; Pulse 74; Resp 18; Pulse Ox 100% ; cp4 MDM: 10:21 Patient medically screened. [facility] 11:58 Differential diagnosis: arthritis, strain, fracture, sciatica, contusion. Data [facility] reviewed: vital signs, nurses notes, radiologic studies, CT scan, plain films. I considered the following discharge prescriptions or medication management in the emergency department Medications were administered in the Emergency Department. See MAR. Independent interpretation of the following test(s) in the Emergency Department X-Ray: My interpretation is no acute fractures. Historians other than the Patient: EMS: EMS. Care significantly affected by the following chronic conditions: Hypertension. Counseling: I had a detailed discussion with the patient and/or guardian regarding the historical points, exam findings, and any diagnostic results supporting the discharge/admit diagnosis, to return to the emergency department if symptoms worsen or persist or if there are any questions or concerns that arise at home. Response to treatment: the patient's symptoms have mildly improved after treatment. 05/31 10:21 Order name: XRAY Femur RIGHT; Complete Time: 11:25 jh7 05/31 10:21 Order name: CT Pelvis wo Cont; Complete Time: 11:25 7 Administered Medications: 10:38 Drug: [place] PO 10 mg-325 mg 1 tabs PO once Route: PO; cp4 11:24 Follow up: Response: No adverse reaction cp4 12:39 Follow up: Response: No adverse reaction cp4 11:55 Drug: morphine IM 4 mg IM once Route: IM; Site: right deltoid; cp4 12:39 Follow up: Response: No adverse reaction cp4 11:55 Drug: Ondansetron Oral Disintegrating Tablet Oral Disintegrating Tablet 4 mg PO once cp4 Route: PO; 12:39 Follow up: Response: No adverse reaction cp4 Disposition: 18:36 Co-signature as Attending Physician, Reagan Stokes MD I reviewed the patient's care rn provided by the Advanced Practice Provider and agree with the diagnosis and treatment plan. Disposition Summary: 05/31/23 11:56 Discharge Ordered Notes: Location: Home [facility] Problem: new [facility] Symptoms: have improved [facility] Condition: Stable [facility] Diagnosis - Contusion of right hip [facility] Followup: [facility] - With: Private Physician - When: 2 - 3 days - Reason: Recheck today's complaints Discharge Instructions: - Discharge Summary Sheet [facility] - Fall Prevention in the Home, Adult [facility] - Hip Pain [facility] Forms: - Medication Reconciliation Form [facility] - Thank You Letter [facility] - Prescription Opioid Use [facility] - Patient Portal Instructions [facility] - Leadership Thank You Letter [facility] Prescriptions: - acetaminophen-codeine 300-30 mg Oral tablet - take 1 tablet ORAL route every 4 hours As needed as needed for pain; 30 tablet; [facility] Refills: 0, Product Selection Permitted Signatures: Dispatcher [employer] Reagan Alanis MD MD rn Cecy Lau, TREE FELLER OPERATOR TREE FELLER OPERATOR [facility] Tori Russ cp4
[2023-05-31 12:46] VITALS: BP 121/66; TEMP 97.9; O2SAT 100
== END ==
LOC: ER 10:19
DX: S70.01XA Contusion of right hip, initial encounter (principal); W06.XXXA Fall from bed, initial encounter; Z88.2 Allergy status to sulfonamides
CPT/HCPCS: 72192; 73552; 96372; 99284; Q0162

== ENCOUNTER 2024-04-04 10:43 | Emergency (ER) | payer OTHER ==
[2024-04-04 12:18] LABS: Specific Gravity 1.009 (1.005-1.030); Sqamous Epithelial None Seen /HPF (None Seen); Urine Bacteria None Seen /HPF (<20); Urine Bilirubin NEGATIVE (Negative); Urine Blood Negative (Negative); Urine Clarity Clear (Clear); Urine Color Colorless (Yellow); Urine Culture Reflex Order NOT NEEDED; Urine Glucose NEGATIVE (Negative); Urine Ketones NEGATIVE (Negative); Urine Micro Reflex YN NO BILL MICROSCOPIC; Urine Nitrite NEGATIVE (Negative); Urine Protein NEGATIVE (Negative); Urine RBC <5 /HPF (None Seen); Urine Urobilinogen Normal (Normal); Urine WBC <5 /HPF (<5); Urine pH 6.5 (5.0-7.0)
--- NOTE | 2024-04-04 12:43 | EDPHYS ---
Physician Documentation [facility] Name: Bernarda Bond Age: 78 yrs Sex: Female : 1945 Arrival Date: 04/04/2024 Time: 10:43 Bed 19 Private MD: ED Physician Marco Garcia HPI: 04/04 12:44 This 78 yrs old Female presents to ER via Ambulatory with complaints of Urinary Problem.jr8 12:44 78-year-old female patient presents emergency room with complaints of urinary frequency jr8 and possible prolapsed bladder. Patient stated that she has had a cystocele in the past but has been stable. Stated that she feels like it is now with gravity upon sitting in the bathroom, pushing out towards her vaginal opening. Denies pain or other problems at this time.. Historical: - Allergies: 11:07 Sulfa (Sulfonamide Antibiotics); iw - PMHx: 11:07 High Cholesterol; Heart Murmur; Hypertension; iw - PSHx: 11:07 hysterectomy; Cholecystectomy; destiny knee; iw - Immunization history:: Adult Immunizations not up to date. - Infectious Disease History:: Denies. - Social history:: Smoking status: Patient denies any tobacco usage or history of. Smoking status: Patient/guardian denies using tobacco, but has a distant history of tobacco abuse. ROS: 12:44 Eyes: Negative for injury, pain, redness, and discharge, ENT: Negative for injury, jr8 pain, and discharge, Neck: Negative for injury, pain, and swelling, Cardiovascular: Negative for chest pain, palpitations, and edema, Respiratory: Negative for shortness of breath, cough, wheezing, and pleuritic chest pain, Abdomen/GI: Negative for abdominal pain, nausea, vomiting, diarrhea, and constipation, Back: Negative for injury and pain, MS/Extremity: Negative for injury and deformity, Skin: Negative for injury, rash, and discoloration, Neuro: Negative for headache, weakness, numbness, tingling, and seizure, 12:44 : Positive for urinary frequency, Exam: 12:44 Constitutional: This is a well developed, well nourished patient who is awake, alert, jr8 and in no acute distress. Cardiovascular: Regular rate and rhythm with a normal S1 and S2. No gallops, murmurs, or rubs. Normal PMI, no JVD. No pulse deficits. Respiratory: Lungs have equal breath sounds bilaterally, clear to auscultation and percussion. No rales, rhonchi or wheezes noted. No increased work of breathing, no retractions or nasal flaring. Abdomen/GI: Soft, non-tender, with normal bowel sounds. No distension or tympany. No guarding or rebound. No evidence of tenderness throughout. Back: No spinal tenderness. No costovertebral tenderness. Full range of motion. Skin: Warm, dry with normal turgor. Normal color with no rashes, no lesions, and no evidence of cellulitis. MS/ Extremity: Pulses equal, no cyanosis. Neurovascular intact. Full, normal range of motion. Neuro: Awake and alert, GCS 15, oriented to person, place, time, and situation. Motor strength 5/5 in all extremities. Sensory grossly intact. 12:44 : Pelvic Exam: External exam: is normal, no erythema, not excoriated, no evidence of foreign body, no lesions, no ulcerations, no warts seen, No protrusion of intravaginal wall with cystocele noted on external examination. Mild bulging internally to the superior portion of the vaginal wall consistent with already known cystocele, Bladder: is normal, non-distended, Vital Signs: 11:06 BP 111 / 66; Pulse 59; Resp 16; Temp 98; Pulse Ox 96% ; Weight 72.57 kg; Height 5 ft. 6 iw in. ; Pain 4/10; 11:06 Body Mass Index 25.82 (72.57 kg, 167.64 cm) iw 11:06 Pain Scale: Adult iw MDM: 10:56 Medical Screening Exam initiated jr8 12:41 Data reviewed: vital signs, nurses notes, lab test result(s), and as a result, I will jr8 discharge patient. Counseling: I had a detailed discussion with the patient and/or guardian regarding the historical points, exam findings, and any diagnostic results supporting the discharge/admit diagnosis, the need for outpatient follow up, an OB/Gyne specialist. ED course: Discussed with patient that there was no prolapse at this time upon examination and urinalysis was clean. Will need to follow-up with gynecology next week if possible. Patient has appointment on April 12 but will see if she can get in sooner. If she were to have a worsening or any change come back immediately. 04/04 10:56 Order name: Urinalysis W/Microscopic; Complete Time: 12:40 jr8 Administered Medications: No medications were administered Disposition Summary: 04/04/24 12:42 Discharge Ordered Notes: Location: Home jr8 Problem: new jr8 Symptoms: have improved jr8 Condition: Stable jr8 Diagnosis - Cystocele, unspecified jr8 Followup: jr8 - With: Private Physician - When: 1 week - Reason: Recheck today's complaints, Continuance of care, Re-evaluation by your physician Discharge Instructions: - Discharge Summary Sheet jr8 - Pelvic Organ Prolapse jr8 Forms: - Medication Reconciliation Form jr8 - Antibiotic Education jr8 - Prescription Opioid Use jr8 - Patient Portal Instructions jr8 - Leadership Thank You Letter jr8 Signatures: Dispatcher [employer] Samira Wallace, RN RN Balbir Hinkle PA PA jr8
--- NOTE | 2024-04-04 12:43 | ER ---
Nurse's Notes [facility] Name: Bernarda Bond Age: 78 yrs Sex: Female : 1945 Arrival Date: 04/04/2024 Time: 10:43 Bed 19 Private MD: Diagnosis: Cystocele, unspecified Presentation: 04/04 11:06 Chief complaint: Patient states: I have a bladder prolapse and my vagina hurts and I'm iw peeing every 30 minutes , felt something there since Friday. Coronavirus screen: At this time, the client does not indicate any symptoms associated with coronavirus-19. Ebola Screen: No symptoms or risks identified at this time. Initial Sepsis Screen: Does the patient meet any 2 criteria? No. Patient's initial sepsis screen is negative. Does the patient have a suspected source of infection? No. Patient's initial sepsis screen is negative. Risk Assessment: Do you want to hurt yourself or someone else? Patient reports no desire to harm self or others. Onset of symptoms was April 02, 2024. 11:06 Method Of Arrival: Ambulatory iw 11:06 Acuity: AWAIS 3 iw Triage Assessment: 12:34 General: Appears in no apparent distress. comfortable, Behavior is calm, cooperative. cm10 Pain: Complains of pain in pelvis. Neuro: No deficits noted. Level of Consciousness is awake, alert, obeys commands, Oriented to person, place, time, situation, Appropriate for age. Respiratory: No deficits noted. Airway is patent Respiratory effort is even, unlabored, Respiratory pattern is symmetrical. : Reports burning with urination, urgency, urinary frequency. Historical: - Allergies: 11:07 Sulfa (Sulfonamide Antibiotics); iw - PMHx: 11:07 High Cholesterol; Heart Murmur; Hypertension; iw - PSHx: 11:07 hysterectomy; Cholecystectomy; destiny knee; iw - Immunization history:: Adult Immunizations not up to date. - Infectious Disease History:: Denies. - Social history:: Smoking status: Patient denies any tobacco usage or history of. Smoking status: Patient/guardian denies using tobacco, but has a distant history of tobacco abuse. Screenin:35 [facility] ED Fall Risk Assessment (Adult) History of falling in the last 3 months, cm10 including since admission No falls in past 3 months (0 pts) Confusion or Disorientation No (0 pts) Intoxicated or Sedated No (0 pts) Impaired Gait No (0 pts) Mobility Assist Device Used No (0 pt) Altered Elimination No (0 pt) Score/Fall Risk Level 0 - 2 = Low Risk Oriented to surroundings, Maintained a safe environment, Hourly rounding (assess needs \T\ fall precautionary measures) done. Abuse screen: Denies threats or abuse. Denies injuries from another. Nutritional screening: No deficits noted. Tuberculosis screening: No symptoms or risk factors identified. Vital Signs: 11:06 BP 111 / 66; Pulse 59; Resp 16; Temp 98; Pulse Ox 96% ; Weight 72.57 kg; Height 5 ft. 6 iw in. ; Pain 10; 11:06 Body Mass Index 25.82 (72.57 kg, 167.64 cm) iw 11:06 Pain Scale: Adult iw ED Course: 10:48 Patient arrived in ED. ra3 10:56 Balbir Barreto PA is PHCP. jr8 10:56 Marco Garcia MD is Attending Physician. jr8 11:07 Triage completed. iw 11:08 Arm band placed on. iw 12:24 Stephanie Leary, MANUEL is Primary Nurse. cm10 12:35 Patient has correct armband on for positive identification. Bed in low position. Call cm10 light in reach. Side rails up X 1. Provided Education on: ER process and procedures.. 12:35 No provider procedures requiring assistance completed. cm10 12:57 Patient did not have IV access during this emergency room visit. cm10 Administered Medications: No medications were administered Medication: 12:35 VIS not applicable for this client. cm10 Outcome: 12:42 Discharge ordered by . jr8 12:57 Discharged to home ambulatory, with family, cm10 12:57 Condition: good 12:57 Discharge instructions given to patient, Instructed on discharge instructions, follow up and referral plans. Demonstrated understanding of instructions, follow-up care, 12:57 Patient left the ED. cm10 Signatures: Samira Zepeda, RN RN Balbir Barreto PA PA jr8 Stephanie Leary RN RN cm10 Alva, Ruby ra3
[2024-04-04 13:01] VITALS: BP 111/66; TEMP 98; O2SAT 96
== END 2024-04-04 12:57 | disposition home or self-care (01) ==
LOC: ER 10:43
DX: N81.10 Cystocele, unspecified (principal)
CPT/HCPCS: 81001; 99282

== ENCOUNTER 2024-04-26 11:43 | Emergency (ER) | payer OTHER ==
[2024-04-26] MEDS ORDERED: NA CHLORIDE 0.9% 1,000 ML ONE (12:22)
--- NOTE | 2024-04-26 12:25 | RAD REPORT ---
EXAM: CT brain without contrast HISTORY: Syncope COMPARISON: None TECHNIQUE: Multiple contiguous axial images were obtained and a CT of the brain without contrast.. Sagittal and coronal reconstruction performed. Automated exposure control, adjustment of the mA and/or kV according to patient size, and/or iterative reconstruction. Unless otherwise specified, incidental f indings do not require dedicated imaging follow-up FINDINGS: An intracranial bleed is not seen Ventricles are normal caliber No extra-axial fluid collection noted No significant hypodensity within the brain No fluid within the visualized sinuses or mastoids noted. IMPRESSION: No acute intracranial abnormality noted. If the patient's symptoms persist MRI of the brain would be recommended.
--- NOTE | 2024-04-26 12:28 | RAD REPORT ---
Procedure: Chest Single View HISTORY: Cough COMPARISON: 2020 FINDINGS: The lungs appear clear of acute infiltrate. No significant pleural effusion noted. The heart is normal size. IMPRESSION: No acute abnormality is displayed.
[2024-04-26 12:44] LABS: Absolute Eosinophils 0.1 K/uL (0-0.5); Absolute Lymphocytes (CBC) 1.1 K/uL (0.7-4.9); Absolute Monocytes 0.5 K/uL (0.1-1.3); Basophils % 0.7 % (0-1.3); Eosinophils % 1.1 % (0-4.4); Hematocrit 41.6 % (36.0-45.0); Hemoglobin 13.8 g/dL (12.0-15.0); Lymphocytes % 20.2 % (15.3-44.8); MCH 29.5 pg (27.0-35.0); MCHC 33.2 g/dL (32.0-36.0); MCV 88.8 fL (80-100); MPV 8.9 fL (7.6-11.3); Monocytes % 7.9 % (3.3-12.3); Neutrophils % 70.1 % (41.7-73.7); Platelets 137 thou/uL (152-406); RBC Red Blood Cell Count 4.68 M/uL (3.86-4.86); Red Cell Distribution Width 14.2 % (12.1-15.2)
[2024-04-26 12:45] LABS: PT Prothrombin Time 15.1 SECONDS (9.4-12.5); Protime INR 1.36
[2024-04-26 13:03] LABS: ALT/SGPT 22 U/L (13-56); AST/SGOT 20 U/L (15-37); Albumin/Globulin Ratio 1.2 (1.1-1.8); Alkaline Phosphatase 85 U/L (45-117); Anion Gap 8.9 mEq/L (5.0-15.0); BUN Blood Urea Nitrogen 30 mg/dL (7-18); Bicarbonate 26 mEq/L (21-32); Bilirubin Total 0.4 mg/dL (0.2-1.0); Globulin 3.4 g/dL (2.3-3.5); Glomerular Filtration Rate 67 ml/min (=/>90); Glucose Level 96 mg/dL (74-106); Lipase 34 U/L (13-75); Magnesium 2.2 mg/dL (1.6-2.4); NT PRO-BNP 1022 pg/mL (<450); Potassium 3.9 mEq/L (3.5-5.1); Protein, Total 7.4 g/dL (6.4-8.2); Sodium Level 139 mEq/L (136-145); Troponin High Sensitivity 5.2 pg/mL (<58.9)
[2024-04-26 13:04] LABS: Bilirubin Direct < 0.2 mg/dL (0-0.2); Bilirubin Indirect, Calculated 0.2 mg/dL (0.2-0.8)
[2024-04-26 13:44] LABS: Specific Gravity 1.008 (1.005-1.030); Urine Bilirubin NEGATIVE (Negative); Urine Blood Negative (Negative); Urine Clarity Clear (Clear); Urine Color Colorless (Yellow); Urine Glucose NEGATIVE (Negative); Urine Ketones NEGATIVE (Negative); Urine Microscopic Reflex YN NO UMIC; Urine Nitrite NEGATIVE (Negative); Urine Protein NEGATIVE (Negative); Urine Urobilinogen Normal (Normal)
--- NOTE | 2024-04-26 14:08 | EDPHYS ---
Physician Documentation [facility] Name: Bernarda Bond Age: 78 yrs Sex: Female : 1945 Arrival Date: 04/26/2024 Time: 11:43 Bed 18 Private MD: ED Physician Jorge Herrera HPI: 04/26 13:58 This 78 yrs old Female presents to ER via Ambulatory with complaints of diane Dizziness, Near Syncope, low blood pressure. 13:58 The patient presents with dizziness, generalized weakness. Context: occurred at home, diane occurred while the patient was walking. Modifying factors: The symptoms are alleviated by holding head still, the symptoms are aggravated by movement of head. Associated signs and symptoms: Pertinent positives: syncope. Severity of symptoms: At their worst the symptoms were mild in the emergency department the symptoms have improved mildly. Patient's baseline: Neuro: alert and fully oriented, Motor: no deficits, Ambulation: walks without assistance. The patient has experienced similar episodes in the past, several times. Historical: - Allergies: 11:57 Sulfa (Sulfonamide Antibiotics); kc6 - PMHx: 11:57 Hypertension; High Cholesterol; Heart Murmur; Fibromyalgia; Arthritis; kc6 - PSHx: 11:57 hysterectomy; Cholecystectomy; SHAHANA knee; heart valce replacement (SHAHANA knee); kc6 - Immunization history:: Adult Immunizations up to date. - Infectious Disease History:: Denies. - Social history:: Smoking status: Patient denies any tobacco usage or history of. ROS: 14:02 Constitutional: Negative for fever, chills, and weight loss, Eyes: Negative for injury, diane pain, redness, and discharge, ENT: Negative for injury, pain, and discharge, Neck: Negative for injury, pain, and swelling, Cardiovascular: Negative for chest pain, palpitations, and edema, Respiratory: Negative for shortness of breath, cough, wheezing, and pleuritic chest pain, Abdomen/GI: Negative for abdominal pain, nausea, vomiting, diarrhea, and constipation, Back: Negative for injury and pain, : Negative for injury, bleeding, discharge, and swelling, MS/Extremity: Negative for injury and deformity, Skin: Negative for injury, rash, and discoloration, Psych: Negative for depression, anxiety, suicide ideation, homicidal ideation, and hallucinations, Allergy/Immunology: Negative for hives, rash, and allergies, Endocrine: Negative for neck swelling, polydipsia, polyuria, polyphagia, and marked weight changes, Hematologic/Lymphatic: Negative for swollen nodes, abnormal bleeding, and unusual bruising, 14:02 Neuro: Positive for near syncope, weakness, Exam: 14:02 Constitutional: This is a well developed, well nourished patient who is awake, alert, diane and in no acute distress. Head/Face: Normocephalic, atraumatic. Eyes: Pupils equal round and reactive to light, extra-ocular motions intact. Lids and lashes normal. Conjunctiva and sclera are non-icteric and not injected. Cornea within normal limits. Periorbital areas with no swelling, redness, or edema. ENT: Nares patent. No nasal discharge, no septal abnormalities noted. Tympanic membranes are normal and external auditory canals are clear. Oropharynx with no redness, swelling, or masses, exudates, or evidence of obstruction, uvula midline. Mucous membranes moist. Neck: Trachea midline, no thyromegaly or masses palpated, and no cervical lymphadenopathy. Supple, full range of motion without nuchal rigidity, or vertebral point tenderness. No Meningismus. Chest/axilla: Normal chest wall appearance and motion. Nontender with no deformity. No lesions are appreciated. Cardiovascular: Regular rate and rhythm with a normal S1 and S2. No gallops, murmurs, or rubs. Normal PMI, no JVD. No pulse deficits. Respiratory: Lungs have equal breath sounds bilaterally, clear to auscultation and percussion. No rales, rhonchi or wheezes noted. No increased work of breathing, no retractions or nasal flaring. Abdomen/GI: Soft, non-tender, with normal bowel sounds. No distension or tympany. No guarding or rebound. No evidence of tenderness throughout. Back: No spinal tenderness. No costovertebral tenderness. Full range of motion. Female : Normal external genitalia. Skin: Warm, dry with normal turgor. Normal color with no rashes, no lesions, and no evidence of cellulitis. MS/ Extremity: Pulses equal, no cyanosis. Neurovascular intact. Full, normal range of motion. Neuro: Awake and alert, GCS 15, oriented to person, place, time, and situation. Cranial nerves II-XII grossly intact. Motor strength 5/5 in all extremities. Sensory grossly intact. Cerebellar exam normal. Normal gait. Psych: Awake, alert, with orientation to person, place and time. Behavior, mood, and affect are within normal limits. 14:02 ECG was reviewed by the Attending Physician. 14:02 Musculoskeletal/extremity: Extremities: all appear grossly normal, with no appreciated pain with palpation, ROM: no acute changes, intact in all extremities, Circulation is intact in all extremities. Sensation intact. Compartment Syndrome exam of affected extremity: is normal. Joints: All joints appear normal with full range of motion. Weight bearing: able to fully bear weight, DVT Exam: No signs of deep vein thrombosis. no pain, no swelling, no tenderness, negative Homans' sign noted on exam, no appreciated bluish discoloration, no erythema, no increased warmth, Vital Signs: 11:56 BP 100 / 53; Pulse 63; Resp 16 S; Temp 97.8(O); Pulse Ox 96% on R/A; Weight 85.73 kg kc6 (R); Height 5 ft. 6 in. (R); Pain 0/10; 12:39 BP 94 / 59; Pulse 55; Resp 16 S; Pulse Ox 94% on R/A; kc6 13:30 BP 117 / 61 LA Supine (auto/reg); Pulse 62; kc6 13:30 BP 120 / 60 LA Sitting (auto/reg); Pulse 55; kc6 13:30 BP 117 / 67 LA Standing (auto/reg); Pulse 65; kc6 11:56 Body Mass Index 30.51 (85.73 kg, 167.64 cm) [facility] 11:56 Pain Scale: Adult [facility] NIH Stroke Scale Scores: 14:02 NIHSS Score: 0 diane [place] Coma Score: 14:02 Eye Response: spontaneous(4). Motor Response: obeys commands(6). Verbal Response: diane oriented(5). Total: 15. MDM: 11:58 Medical Screening Exam initiated diane 14:04 Differential Diagnosis altered mental status, sepsis, flu. Differential diagnosis: diane cardiac arrhythmia, CVA, generalized weakness, GI bleed, hypovolemia, idiopathic dizziness, near-syncope, , sepsis, syncope, TIA, vertigo. Data reviewed: vital signs, nurses notes, lab test result(s), EKG, radiologic studies, plain films. Consideration of Admission/Observation Escalation of care including admission/observation considered. I considered the following discharge prescriptions or medication management in the emergency department Medications were administered in the Emergency Department. See MAR. Independent interpretation of the following test(s) in the Emergency Department EKG: See my EKG interpretation above. Test considered but Not performed: MRI: NO MRI BRAIN. CT: . Historians other than the Patient: PT WELL INFORMED. Care significantly affected by the following chronic conditions: Hypertension, Obesity, HIGH CHOLESTEROL, MURMUR,FIBROMYALGIA. Counseling: I had a detailed discussion with the patient and/or guardian regarding the historical points, exam findings, and any diagnostic results supporting the discharge/admit diagnosis, lab results, radiology results, the need for outpatient follow up, for definitive care, a family practitioner. 04/26 11:59 Order name: Basic Metabolic Panel; Complete Time: 13:19 [facility] 04/26 11:59 Order name: CBC with Diff; Complete Time: 13:19 [facility] 04/26 11:59 Order name: LFT's; Complete Time: 13:19 [facility] 04/26 11:59 Order name: Magnesium; Complete Time: 13:19 [facility] 04/26 11:59 Order name: NT PRO-BNP; Complete Time: 13:19 [facility] 04/26 11:59 Order name: PT-INR; Complete Time: 13:19 [facility] 04/26 11:59 Order name: Troponin HS; Complete Time: 13:19 [facility] 04/26 11:59 Order name: Lipase; Complete Time: 13:19 [facility] 04/26 11:59 Order name: Urinalysis w/ reflexes; Complete Time: 13:57 [facility] 04/26 11:59 Order name: XRAY Chest (1 view); Complete Time: 13:19 [facility] 04/26 11:59 Order name: CT Head Brain wo Cont; Complete Time: 13:19 [facility] 04/26 11:59 Order name: EKG; Complete Time: 12:00 04/26 11:59 Order name: Cardiac monitoring; Complete Time: 12:24 04/26 11:59 Order name: EKG - Nurse/Tech; Complete Time: 12:12 [facility] 04/26 11:59 Order name: IV Saline Lock; Complete Time: 12:38 [facility] 04/26 11:59 Order name: Labs collected and sent; Complete Time: 12:38 [facility] 04/26 11:59 Order name: O2 Per Protocol; Complete Time: 12:02 [facility] 04/26 11:59 Order name: O2 Sat Monitoring; Complete Time: 12: [facility] 04/26 13:19 Order name: Orthostatics; Complete Time: [facility] 04/26 13:19 Order name: PO challenge; Complete Time: : [facility] EC:02 Rate is 56 beats/min. Rhythm is regular. QRS [place] is Normal. [place] interval is normal. QRS diane interval is normal. QT interval is normal. No Q waves. T waves are Normal. No ST changes noted. Clinical impression: Sinus bradycardia and No evidence of ischemia. Interpreted by me. Reviewed by me. Administered Medications: 12:38 Drug: NS 0.9% IV 1000 ml IV at 1000 ml once; to be given as a bolus over 60 minutes kc6 Route: IV; Rate: 1000 ml; Site: right forearm; :59 Follow up: Response: No adverse reaction; IV Status: Completed infusion; IV Intake: kc6 1000ml 14:05 Not Given (Patient Refused): [id number] mg IVP once kc6 14:05 Not Given (Patient Refused): [id number] mg IVP once kc6 Disposition Summary: 04/26/24 14:07 Discharge Ordered Notes: Location: Home diane Problem: new diane Symptoms: have improved diane Condition: Stable diane Diagnosis - Fibromyalgia diane - Weakness diane - Syncope Near diane Followup: diane - With: Private Physician - When: 2 - 3 days - Reason: Recheck today's complaints, Continuance of care, Re-evaluation by your physician Discharge Instructions: - Discharge Summary Sheet diane - Myofascial Pain Syndrome and Fibromyalgia diane - Musculoskeletal Pain diane - Near-Syncope diane - Weakness diane - Fatigue diane - Near-Syncope, [id number]-tg-[id number] diane - Syncope, Fbeq-ot-[id number] diane - Weakness, Zegh-rr-[id number] diane - Deconditioning diane Forms: - Medication Reconciliation Form diane - Antibiotic Education diane - Prescription Opioid Use diane - Patient Portal Instructions [facility] - Leadership Thank You Letter [facility] Prescriptions: - diclofenac sodium 25 mg Oral tablet, delayed release (enteric coated) - take 3 tablet ORAL route once; 21 tablet; Refills: 0, Product Selection diane Permitted - Medrol (Greyson) 4 mg Oral Tablets, Dose Pack - take 1 tablet ORAL route as directed - follow package instructions; 1 packet; diane Refills: 0, Product Selection Permitted NIH Stroke Scale - NIH Stroke Score Date: 04/26/2024 Time: 14:02 Total Score = 0 10. Dysarthria (speech clarity - read or repeat words) - 0(Normal) 11. Extinction and Inattention (visual/tactile/auditory/spatial/personal) - 0(No abnormality) 1a. Level of Consciousness (LOC) - 0(Alert) 1b. Level of Consciousness (LOC) (Month \T\ Age) - 0(Both) 1c. LOC Commands (Open \T\ Closes Eyes/Silver Wrapper) - 0(Both) 2. Best Gaze (Lateral Gaze Paresis) - 0(Normal) 3. Visual Field Loss - 0(No visual loss) 4. Facial Palsy - 0(Normal) 5a. Left Arm: Motor (10-second hold) - 0(No drift) 5b. Right Arm: Motor (10-second hold) - 0(No drift) 6a. Left Leg: Motor (5-second hold - always test supine) - 0(No drift) 6b. Right Leg: Motor (5-second hold - always test supine) - 0(No drift) 7. Limb Ataxia (finger/nose \T\ heel/morales - test with eyes open) - 0(Absent) 8. Sensory Loss (pinprick arms/legs/face) - 0(Normal) 9. Best Language: Aphasia (description/naming/reading) - 0(No aphasia) Initials: diane Tom: Dispatcher [employer] EDJorge Shepherd MD MD cha Campbell, Kaitlyn RN RN kc6 Corrections: (The following items were deleted from the chart) 12:00 12:00 BASIC METABOLIC PANEL+C.LAB.BRZ ordered. EDMS EDMS 12:00 12:00 CBC+H.LAB.BRZ ordered. EDMS EDMS 12:00 12:00 HEPATIC FUNCTION+C.LAB.BRZ ordered. EDMS EDMS 12:00 12:00 MAGNESIUM+C.LAB.BRZ ordered. EDMS EDMS 12:00 12:00 PROBNP+C.LAB.BRZ ordered. EDMS EDMS 12:00 12:00 PROTIME (+INR)+COAG.LAB.BRZ ordered. EDMS EDMS 12:00 12:00 Troponin High Sensitivity+C.LAB.BRZ ordered. EDMS EDMS 12:00 12:00 LIPASE+C.LAB.BRZ ordered. EDMS EDMS 12:00 12:00 Urinalysis+U.LAB.BRZ ordered. EDMS EDMS
--- NOTE | 2024-04-26 14:08 | ER ---
Nurse's Notes [facility] Name: Bernarda Bond Age: 78 yrs Sex: Female : 1945 Arrival Date: 04/26/2024 Time: 11:43 Bed 18 Private MD: Diagnosis: Fibromyalgia;Weakness;Syncope Near Presentation: 04/26 11:56 Chief complaint: Patient states: she was at [employer] when she became really dizzy and kc6 light headed. Coronavirus screen: At this time, the client does not indicate any symptoms associated with coronavirus-19. Ebola Screen: No symptoms or risks identified at this time. Initial Sepsis Screen: Does the patient meet any 2 criteria? No. Patient's initial sepsis screen is negative. Does the patient have a suspected source of infection? No. Patient's initial sepsis screen is negative. Risk Assessment: Do you want to hurt yourself or someone else? Patient reports no desire to harm self or others. Onset of symptoms was April 26, 2024. 11:56 Method Of Arrival: Ambulatory [facility] 11:56 Acuity: AWAIS 3 kc6 Historical: - Allergies: 11:57 Sulfa (Sulfonamide Antibiotics); kc6 - PMHx: 11:57 Hypertension; High Cholesterol; Heart Murmur; Fibromyalgia; Arthritis; kc6 - PSHx: 11:57 hysterectomy; Cholecystectomy; SHAHANA knee; heart valce replacement (SHAHANA knee); kc6 - Immunization history:: Adult Immunizations up to date. - Infectious Disease History:: Denies. - Social history:: Smoking status: Patient denies any tobacco usage or history of. Screenin:39 [facility] ED Fall Risk Assessment (Adult) History of falling in the last 3 months, kc6 including since admission No falls in past 3 months (0 pts) Confusion or Disorientation No (0 pts) Intoxicated or Sedated No (0 pts) Impaired Gait No (0 pts) Mobility Assist Device Used Yes (1 pt) Altered Elimination No (0 pt) Score/Fall Risk Level 0 - 2 = Low Risk Oriented to surroundings. Abuse screen: Denies threats or abuse. Denies injuries from another. Nutritional screening: No deficits noted. Tuberculosis screening: No symptoms or risk factors identified. Assessment: 12:39 General: Appears in no apparent distress. comfortable, well groomed, well developed, kc6 Behavior is calm, cooperative, appropriate for age. Pain: Denies pain. Neuro: Level of Consciousness is awake, alert, obeys commands, Oriented to person, place, time, situation, Appropriate for age Reports dizziness, weakness. Cardiovascular: Denies chest pain, shortness of breath, Capillary refill < 3 seconds Rhythm is regular. Respiratory: Airway is patent Trachea midline Respiratory effort is even, unlabored, Respiratory pattern is regular, symmetrical. GI: No signs and/or symptoms were reported involving the gastrointestinal system. : No signs and/or symptoms were reported regarding the genitourinary system. EENT: No signs and/or symptoms were reported regarding the EENT system. Derm: No signs and/or symptoms reported regarding the dermatologic system. Skin is intact, is healthy with good turgor, Skin is pink, warm \T\ dry. Musculoskeletal: No signs and/or symptoms reported regarding the musculoskeletal system. Circulation, motion, and sensation intact. Capillary refill < 3 seconds, Range of motion: intact in all extremities. 13:59 Reassessment: Patient appears in no apparent distress at this time. No changes from kc6 previously documented assessment. Patient and/or family updated on plan of care and expected duration. Pain level reassessed. Patient is alert, oriented x 3, equal unlabored respirations, skin warm/dry/pink. Patient states feeling better. Patient states symptoms have improved. 15:22 Reassessment: Patient appears in no apparent distress at this time. No changes from kc6 previously documented assessment. Patient and/or family updated on plan of care and expected duration. Pain level reassessed. Patient is alert, oriented x 3, equal unlabored respirations, skin warm/dry/pink. Patient states feeling better. Patient states symptoms have improved. Vital Signs: 11:56 BP 100 / 53; Pulse 63; Resp 16 S; Temp 97.8(O); Pulse Ox 96% on R/A; Weight 85.73 kg kc6 (R); Height 5 ft. 6 in. (R); Pain 0/10; 12:39 BP 94 / 59; Pulse 55; Resp 16 S; Pulse Ox 94% on R/A; kc6 13:30 BP 117 / 61 LA Supine (auto/reg); Pulse 62; kc6 13:30 BP 120 / 60 LA Sitting (auto/reg); Pulse 55; kc6 13:30 BP 117 / 67 LA Standing (auto/reg); Pulse 65; kc6 11:56 Body Mass Index 30.51 (85.73 kg, 167.64 cm) kc6 11:56 Pain Scale: Adult kc6 [place] Coma Score: 14:02 Eye Response: spontaneous(4). Motor Response: obeys commands(6). Verbal Response: diane oriented(5). Total: 15. NIH Stroke Scale Scores: 14:02 NIHSS Score: 0 diane ED Course: 11:48 Patient arrived in ED. im 11:57 Triage completed. kc6 11:57 Arm band placed on. kc6 11:58 Jorge Herrera MD is Attending Physician. diane 12:02 Sheryl Denise, MANUEL is Primary Nurse. kc6 12:12 EKG done, by ED staff, reviewed by Jorge Herrera MD. cc6 12:18 CT Head Brain wo Cont In Process Unspecified. EDMS 12:25 XRAY Chest (1 view) In Process Unspecified. EDMS 12:38 Patient has correct armband on for positive identification. Bed in low position. Call kc6 light in reach. Side rails up X 1. Adult w/ patient. plumbing technician on. Pulse ox on. NIBP on. Door closed. Noise minimized. Lights dimmed. Pillow given. 12:38 Inserted saline lock: 20 gauge in right forearm, using aseptic technique. Blood kc6 collected. Flushed with 10 mL NS. Patient maintains SpO2 saturation greater than 95% on room air. 13:30 Assisted to bathroom. kc6 13:30 Diet: Patient given water. Tolerated well. kc6 13:59 Assisted to bathroom. kc6 15:22 No provider procedures requiring assistance completed. IV discontinued, intact, kc6 bleeding controlled, No redness/swelling at site. Pressure dressing applied. Administered Medications: 12:38 Drug: NS 0.9% IV 1000 ml IV at 1000 ml once; to be given as a bolus over 60 minutes kc6 Route: IV; Rate: 1000 ml; Site: right forearm; 13:59 Follow up: Response: No adverse reaction; IV Status: Completed infusion; IV Intake: kc6 1000ml 14:05 Not Given (Patient Refused): [id number] mg IVP once kc6 14:05 Not Given (Patient Refused): [id number] mg IVP once kc6 Medication: 15:23 VIS not applicable for this client. kc6 Intake: 13:59 IV: 1000ml; Total: 1000ml. 6 Outcome: 14:07 Discharge ordered by . diane 15:23 Discharged to home ambulatory, with significant other, [facility] 15:23 Condition: improved 15:23 Discharge instructions given to patient, significant other, Instructed on discharge instructions, follow up and referral plans. Demonstrated understanding of instructions, follow-up care, 15:23 Patient left the ED. 6 NIH Stroke Scale - NIH Stroke Score Date: 04/26/2024 Time: 14:02 Total Score = 0 10. Dysarthria (speech clarity - read or repeat words) - 0(Normal) 11. Extinction and Inattention (visual/tactile/auditory/spatial/personal) - 0(No abnormality) 1a. Level of Consciousness (LOC) - 0(Alert) 1b. Level of Consciousness (LOC) (Month \T\ Age) - 0(Both) 1c. LOC Commands (Open \T\ Closes Eyes/Counseling Center Manager) - 0(Both) 2. Best Gaze (Lateral Gaze Paresis) - 0(Normal) 3. Visual Field Loss - 0(No visual loss) 4. Facial Palsy - 0(Normal) 5a. Left Arm: Motor (10-second hold) - 0(No drift) 5b. Right Arm: Motor (10-second hold) - 0(No drift) 6a. Left Leg: Motor (5-second hold - always test supine) - 0(No drift) 6b. Right Leg: Motor (5-second hold - always test supine) - 0(No drift) 7. Limb Ataxia (finger/nose \T\ heel/morales - test with eyes open) - 0(Absent) 8. Sensory Loss (pinprick arms/legs/face) - 0(Normal) 9. Best Language: Aphasia (description/naming/reading) - 0(No aphasia) Initials: [facility] Signatures: Dispatcher [employer] Jorge [place] MD MD cha Campbell, Kaitlyn, RN RN kc6 Sofia Hopkins Cassandra cc6
[2024-04-26 17:19] VITALS: TEMP 97.8
[2024-04-26 17:24] VITALS: O2SAT 94
[2024-04-26 17:30] VITALS: BP 117/67
--- NOTE | 2024-04-28 11:39 | EKG ---
Test Date: 2024-04-26 Test Time: 12:08:29 Drug Discovery Informatics Specialist: DIANE MEASUREMENT RESULTS: Intervals: Rate: 56 NM: 142 QRSD: 72 QT: 436 QTc: 420 [place]: P: 43 NM: 142 QRS: 19 T: 40 INTERPRETIVE STATEMENTS: Sinus bradycardia Otherwise normal ECG Compared to ECG 10/17/2020 14:00:34 No significant changes Electronically Signed On 04-28-24 11:34:36 ARCHITECTURAL JOB CAPTAIN by Polo Spear
== END 2024-04-26 15:23 | disposition home or self-care (01) ==
LOC: ER 11:43
DX: R55 Syncope and collapse (principal); R53.1 Weakness; M79.7 Fibromyalgia; Z88.2 Allergy status to sulfonamides; I10 Essential (primary) hypertension; E78.00 Pure hypercholesterolemia, unspecified; R01.1 Cardiac murmur, unspecified
CPT/HCPCS: 93005; 85025; 80048; 36415; 83735; 85610; 80076; 81003; 84484; 83690; 83880; 70450; 71045; 96360; 99285; J7030

== ENCOUNTER 2024-07-31 09:31 | Emergency (ER) | payer OTHER ==
[2024-07-31] MEDS ORDERED: FENTANYL CITR 100 MCG/2 ML ONE (09:48)
--- NOTE | 2024-07-31 10:15 | RAD REPORT ---
EXAMINATION: Shoulder Right 2+ Views CLINICAL INDICATION: Female, 78 years old. R shoulder inj RIGHT COMPARISON: No prior exam. FINDINGS: Right proximal humerus fracture involving the surgical neck and greater tuberosity. The fra cture is impacted with mild medial displacement. No other fractures identified of the right humerus or shoulder. IMPRESSION: Right proximal humerus fracture involving the surgical neck and greater tuberosity. Fracture is mildl y displaced.
--- NOTE | 2024-07-31 10:15 | RAD REPORT ---
EXAMINATION: Humerus Right CLINICAL INDICATION: Female, 78 years old. R mid hum inj RIGHT COMPARISON: No prior exam. FINDINGS: Right proximal humerus fracture involving the surgical neck and greater tuberosity. The fra cture is impacted with mild medial displacement. No other fractures identified of the right humerus or shoulder. IMPRESSION: Right proximal humerus fracture involving the surgical neck and greater tuberosity. Fracture is mildl y displaced.
--- NOTE | 2024-07-31 10:15 | RAD REPORT ---
EXAM: Chest Single View HISTORY: 78 years Female GLF COMPARISON: None. FINDINGS: LUNGS/PLEURA: The lungs are clear. No pleural effusions or pneumothorax. No pulmonary edema. CARDIAC/MEDIASTINUM: Magnified by portable technique, but probably within normal limits. UPPER ABDOMEN: No significant abnormality. BONES: Right proximal humerus fracture. LINES/TUBES/OTHER: N/A IMPRESSION: No evidence of acute cardiopulmonary disease.
--- NOTE | 2024-07-31 10:30 | EDPHYS ---
Physician Documentation [facility] Name: Bernarda Bond Age: 78 yrs Sex: Female : 1945 Arrival Date: 07/31/2024 Time: 09:31 Bed 7 Private MD: ED Physician Herbert Magana HPI: 07/31 09:34 This 78 yrs old Female presents to ER via Unassigned with complaints of ec2 Shoulder Injury. 09:34 Patient arrives today for evaluation of a right shoulder injury. Patient reports that ec2 she had a ground-level fall, subsequently slipped and fell and landed on her right shoulder. No LOC, no head strike, no head or neck pain. Denies any prodromal symptoms. Patient complaining of right shoulder pain. EMS reports to give the patient fentanyl for pain.. Historical: - Allergies: 09:36 Sulfa (Sulfonamide Antibiotics); iw - PMHx: 09:36 Arthritis; Fibromyalgia; Heart Murmur; High Cholesterol; Hypertension; iw - PSHx: 09:36 SHAHANA knee; Cholecystectomy; heart valce replacement; hysterectomy; iw - Immunization history:: Adult Immunizations unknown. - Infectious Disease History:: Denies. - Social history:: Smoking status: Patient denies any tobacco usage or history of. ROS: 09:34 Constitutional: as per hpi ec2 Exam: 09:34 Constitutional: GEN: NAD Head: atraumatic Eyes: EOMI Ears: External ears are ec2 normal. CV: regular rate LUNGS: no respiratory distress ABD: non-distended SKIN: no evidence of rashes MSK: Right shoulder with TTP, intact distal neurovascular status. No C-spine TTP, chest wall, left upper extremity as well as bilateral lower extremities without trauma. Vital Signs: 09:35 BP 120 / 76; Pulse 52; Resp 16; Temp 97.6(TE); Pulse Ox 94% on R/A; Pain 4/10; iw 09:35 Pain Scale: Adult iw MDM: 09:34 Medical Screening Exam initiated ec2 09:35 Data reviewed: vital signs, nurses notes. ED course: Patient arrives today for ec2 evaluation of right shoulder pain after GLF. Examination yields MSK findings as above. Will obtain chest, shoulder, humerus x-ray. DDx includes contusion, fracture, dislocation. 10:28 ED course: Shoulder x-ray independently reviewed and interpreted by me, shows proximal ec2 right humerus fracture, will place patient in sling and have the patient follow-up with orthopedic surgery. Will discharge home. Return precautions given. Patient is intact distally.. 07/31 09:34 Order name: CXR XRAY; Complete Time: 10:28 ec2 07/31 09:34 Order name: Humerus Right XRAY; Complete Time: 10:28 ec2 07/31 09:34 Order name: Shoulder Right (2 View) XRAY; Complete Time: 10: ec2 07/31 09:34 Order name: Sling; Complete Time: 10:32 ec2 Administered Medications: 10:02 Drug: fentaNYL (PF) IVP 50 mcg IVP once Route: IVP; Site: left antecubital; iw 11:00 Follow up: Response: No adverse reaction; Pain is decreased iw 10:44 Drug: HYDROcodone-acetaminophen PO 5 mg-325 mg 2 tabs PO once Route: PO; iw 11:00 Follow up: Response: No adverse reaction iw Disposition Summary: 07/31/24 10:29 Discharge Ordered Notes: Location: Home ec2 Condition: Stable ec2 Diagnosis - Fracture of upper end of humerus ec2 Followup: ec2 - With: Carroll Santiago MD - When: - Reason: Recheck today's complaints Discharge Instructions: - Discharge Summary Sheet ec2 - Humerus Fracture Treated With Immobilization, [id number] ec2 Forms: - Medication Reconciliation Form ec2 - Antibiotic Education ec2 - Prescription Opioid Use ec2 - Patient Portal Instructions ec2 - Leadership Thank You Letter ec2 Prescriptions: - Acetaminophen with Codeine, 325mg/30mg - take 1 tablet ORAL route every 4 hours; 15 tablet; Refills: 0, Product ec2 Selection Permitted Signatures: Dispatcher [employer] Samira Wallace RN RN Herbert Mcgarry MD MD ec2
--- NOTE | 2024-07-31 10:30 | ER ---
Nurse's Notes [facility] Name: Bernarda Bond Age: 78 yrs Sex: Female : 1945 Arrival Date: 07/31/2024 Time: 09:31 Bed 7 Private MD: Diagnosis: Fracture of upper end of humerus Presentation: 07/31 09:36 Chief complaint: EMS states: pt fell in kitchen this morning , fell on right shoulder. iw Coronavirus screen: At this time, the client does not indicate any symptoms associated with coronavirus-19. Ebola Screen: No symptoms or risks identified at this time. Initial Sepsis Screen: Does the patient meet any 2 criteria? No. Patient's initial sepsis screen is negative. Does the patient have a suspected source of infection? No. Patient's initial sepsis screen is negative. Risk Assessment: Do you want to hurt yourself or someone else? Patient reports no desire to harm self or others. Onset of symptoms was July 31, 2024. 09:36 Method Of Arrival: EMS: [facility] iw 09:36 Acuity: AWAIS 3 iw Historical: - Allergies: 09:36 Sulfa (Sulfonamide Antibiotics); iw - PMHx: 09:36 Arthritis; Fibromyalgia; Heart Murmur; High Cholesterol; Hypertension; iw - PSHx: 09:36 SAHHANA knee; Cholecystectomy; heart valce replacement; hysterectomy; iw - Immunization history:: Adult Immunizations unknown. - Infectious Disease History:: Denies. - Social history:: Smoking status: Patient denies any tobacco usage or history of. Screenin:19 [facility] ED Fall Risk Assessment (Adult) History of falling in the last 3 months, iw including since admission Yes- single mechanical fall (1 pt) Confusion or Disorientation No (0 pts) Intoxicated or Sedated No (0 pts) Impaired Gait No (0 pts) Mobility Assist Device Used No (0 pt) Altered Elimination No (0 pt) Score/Fall Risk Level 0 - 2 = Low Risk Oriented to surroundings, Maintained a safe environment. Abuse screen: Denies injuries from another. Nutritional screening: No deficits noted. Tuberculosis screening: No symptoms or risk factors identified. Assessment: 09:50 General: Appears uncomfortable, Behavior is cooperative. Pain: Complains of pain in iw right arm Pain currently is 9 out of 10 on a pain scale. Neuro: Level of Consciousness is awake, alert, obeys commands, Oriented to person, place, time, situation. Cardiovascular: Patient's skin is warm and dry. Respiratory: Respiratory effort is even, unlabored, Respiratory pattern is regular. Derm: Skin is fragile, is thin. Musculoskeletal: Range of motion: limited in right shoulder and right elbow. 10:17 Reassessment: Patient appears in no apparent distress at this time. Patient and/or iw family updated on plan of care and expected duration. Pain level reassessed. Vital Signs: 09:35 BP 120 / 76; Pulse 52; Resp 16; Temp 97.6(TE); Pulse Ox 94% on R/A; Pain 4/10; iw 09:35 Pain Scale: Adult iw ED Course: 09:32 Patient arrived in ED. iw 09:33 Herbert Magana MD is Attending Physician. ec2 09:35 Samira Zepeda, MANUEL is Primary Nurse. iw 09:40 Triage completed. iw 09:50 Arm band placed on. iw 09:50 Maintain EMS IV. Dressing intact. Good blood return noted. Site clean \T\ dry. Gauge \T\ iw site: 22LAC. Flushed with 10 mL NS. 10:11 CXR XRAY In Process Unspecified. EDMS 10:11 Humerus Right XRAY In Process Unspecified. EDMS 10:11 Shoulder Right (2 View) XRAY In Process Unspecified. EDMS 10:18 Patient has correct armband on for positive identification. iw 10:29 Carroll Santiago MD is Referral Physician. ec2 10:40 No provider procedures requiring assistance completed. IV discontinued, intact, iw bleeding controlled, No redness/swelling at site. Pressure dressing applied. 10:58 Provided Education on: d/c instructions . iw Administered Medications: 10:02 Drug: fentaNYL (PF) IVP 50 mcg IVP once Route: IVP; Site: left antecubital; iw 11:00 Follow up: Response: No adverse reaction; Pain is decreased iw 10:44 Drug: HYDROcodone-acetaminophen PO 5 mg-325 mg 2 tabs PO once Route: PO; iw 11:00 Follow up: Response: No adverse reaction iw Medication: 09:50 VIS not applicable for this client. iw Outcome: 10:29 Discharge ordered by . ec2 10:58 Discharged to home via wheelchair, with family, iw 10:58 Condition: good 10:58 Discharge instructions given to patient, family, Instructed on discharge instructions, follow up and referral plans. medication usage, Demonstrated understanding of instructions, follow-up care, medications, Prescriptions given X 1, 10:59 Patient left the ED. iw Signatures: Dispatcher [employer] Samira Wallace RN RN iw Herbert Magana MD MD ec2 Corrections: (The following items were deleted from the chart) 09:41 09:35 BP 120 / 76; Pulse 52bpm; Resp 16bpm; Pulse Ox 94% RA; Pain 4/10, Adult; iw iw
[2024-07-31] MEDS ORDERED: HYDROCODONE/APAP 5/325 MG TAB ONE (10:34)
[2024-07-31 11:08] VITALS: BP 120/76; TEMP 97.6; O2SAT 94
== END 2024-07-31 10:59 | disposition home or self-care (01) ==
LOC: ER 09:31
DX: S42.201A Unspecified fracture of upper end of right humerus, initial encounter for closed fracture (principal); W01.0XXA Fall on same level from slipping, tripping and stumbling without subsequent striking against object, initial encounter
CPT/HCPCS: 71045; 73060; 73030; 96374; 99284; J3010

== ENCOUNTER 2025-03-18 08:14 | Day surgery (SDC) | payer OTHER ==
[2025-03-17 15:35] LABS: Absolute Lymphocytes (CBC) 1.1 K/uL (0.7-4.9); Hematocrit 41.5 % (36.0-45.0); Hemoglobin 13.8 g/dL (12.0-15.0); MCH 29.3 pg (27.0-35.0); MCHC 33.3 g/dL (32.0-36.0); MCV 88.0 fL (80-100); MPV 8.2 fL (7.6-11.3); Nucleated RBC Absolute Count 0.0 (0-0); Nucleated Red Blood Cells % 0.1 % (0-0); RBC Red Blood Cell Count 4.71 M/uL (3.86-4.86); White Blood Count 5.00 thou/uL (4.3-10.9)
[2025-03-17 15:44] LABS: PT Prothrombin Time 12.7 SECONDS (10-13.0); Protime INR 1.13
[2025-03-17 15:48] LABS: Anion Gap 6.7 mEq/L (5.0-15.0); BUN Blood Urea Nitrogen 22.0 mg/dL (7-18); Glucose Level 88.0 mg/dL (74-106); Potassium 3.7 mEq/L (3.5-5.1)
[2025-03-18] MEDS ORDERED: LIDOCAINE 2% MPF 5 ML VIAL ONE (08:28)
[2025-03-18] MEDS ORDERED: FENTANYL CITR 100 MCG/2 ML ONE (08:28)
[2025-03-18] MEDS ORDERED: ROCURONIUM 50 MG/5 ML VIAL IV ONE (08:29)
[2025-03-18] MEDS: Ringers Lactate 1,000 ML IV ONE (08:30)
[2025-03-18] MEDS: CEFAZOLIN SODIUM 2 GM/VIAL ONE (09:25)
[2025-03-18] MEDS ORDERED: EPHEDRINE SULF 50 MG/ML VIAL ONE (09:29)
[2025-03-18] MEDS ORDERED: ONDANSETRON 4 MG/2 ML VIAL ONE (09:37)
--- NOTE | 2025-03-18 10:01 | P.OP ---
Preoperative diagnosis: LEFT Shoulder Lipoma Postoperative diagnosis: LEFT Shoulder Intramuscular Lipoma Primary procedure: Excision of LEFT Shoulder intramuscular lipoma Anesthesia: GETA Estimated blood loss: <5cc Specimen: 7.5 x 4.5 x 1.5 cm lipoma Findings: 7.5 x 4.5 x 1.5 cm intramuscular lipoma Complications: None Transferred to: Recovery Room Condition: Good
[2025-03-18] MEDS: HYDROMORPHONE HCL 1 MG/ML INJ ONE (10:28)
--- NOTE | 2025-03-18 10:33 | OP ---
Date of Procedure: 03/18/2025 Surgeon: Baldemar Roman MD, Preoperative Diagnosis: Left shoulder lipoma. Postoperative Diagnosis: Left shoulder intramuscular lipoma. Procedure Performed: Excision of left shoulder intramuscular lipoma. Anesthesia: General endotracheal. Estimated Blood Loss: Less than 5 cc. Specimens: 7.5 x 4.5 x 1.5 cm lipomatous mass in the intramuscular position and left shoulder. Findings: 7.5 x 4.5 x 1.5 cm lipomatous mass in the intramuscular position and left shoulder, adjacent to bone Complications: None. Disposition: The patient was transferred to recovery room in good condition. Procedure In Detail: After informed consent was obtained, the patient was brought to the operating room, prepped and draped in the usual sterile fashion. After adequate anesthesia was achieved, I made an incision down in the left shoulder area over an obvious palpable mass in the left shoulder area consistent with a lipomatous mass. I dissected down to subcutaneous tissues to expose the muscular compartment of the deltoid muscle. At this point, I opened the muscular compartment and spread the fibers up to the fascia and the muscular plane was opened. I dissected down to find an intramuscular lipomatous mass adjacent to the bone. This was bluntly dissected out quite easily without incident or complication and was sent off for pathologic examination in its entirety. The area was inspected at this point for hemostasis. No hemostasis was required. The area was copiously irrigated and the muscle plane was reapproximated using interrupted 3-0 Vicryl sutures. I then closed the deep dermal plane after irrigating the skin with same set 3-0 Vicryl sutures and skin was closed with a 4-0 Monocryl in a running fashion Dermabond was placed over top. The patient tolerated the procedure without incident or complication and transferred to PACU in good condition. All counts were correct at the end of the case. POONAM/ERIN Voice ID: [id number] Report ID: [id number]
[2025-03-18] MEDS: HYDROCODONE/APAP 5/325 MG TAB ONE (11:15)
[2025-03-18 13:22] VITALS: BP 97/40; TEMP 97.1; O2SAT 100
== END 2025-03-18 12:21 | disposition home or self-care (01) ==
LOC: OR 08:14
PROVIDERS: ATTEND Surgery
PROC: 0JBF0ZZ Excision of Left Upper Arm Subcutaneous Tissue and Fascia, Open Approach (ICD-10-PCS; principal; 2025-03-18 09:15)
DX: D17.22 Benign lipomatous neoplasm of skin and subcutaneous tissue of left arm (principal)
CPT/HCPCS: 85025; 80048; 36415; 85610; 88304; 85730; 23073; J2704; J1100; J2003; J3010; J1171; J2405; J7120